=== PATIENT | male | born 1950 | race Caucasian/White ===

== ENCOUNTER 2019-02-17 18:26 | Observation (INO) | payer OTHER ==
--- OUTSIDE RECORDS SUMMARY | 2019-02-17 18:29 | XMS REPORT | Clinical Summary ---
:1950 Author Organization [facility] Address [address] [place] [address] Care Team Providers Name Role Phone Asked, No Pcp Primary Care Provider Unavailable Allergies No Known Allergies Medications Medication Sig Dispensed Refills Start Date End Date Status doxazosin TAKE 1 TABLET 1 11/04/2018 Active (CARDURA) 2 MG BY MOUTH tablet EVERYDAY AT BEDTIME candesartan-hydroc TAKE 1 TABLET 1 11/12/2018 Active hlorothiazid 32-25 BY MOUTH EVERY mg tablet DAY IN THE MORNING LIVALO 2 mg tablet Take 2 mg by 1 09/11/2018 Active mouth nightly. potassium chloride Take 10 mEq by 0 10/21/2018 Active (K-DUR,KLOR-CON) mouth 2 (two) 10 MEQ CR tablet times a day. carvedilol (COREG) Take 25 mg by 1 10/01/2018 Active 25 MG tablet mouth 2 (two) times a day. omeprazole TAKE 1 CAPSULE 0 12/15/2018 Active (PriLOSEC) 20 MG BY MOUTH EVERY capsule DAY IN THE MORNING psyllium seed, Take by mouth 0 Active with dextrose, every morning. (FIBER ORAL) azithromycin 0 01/31/2019 Active (ZITHROMAX) 250 MG tablet lansoprazole TAKE 1 CAPSULE 1 08/31/2018 01/18/2019 Discontinued (PREVACID) 30 MG BY MOUTH EVERY capsule DAY IN THE MORNING traMADol (ULTRAM) Take 1 tablet 30 tablet 0 02/04/2019 02/14/2019 50 mg tablet (50 mg total) by mouth every 6 (six) hours as needed for moderate pain for up to 10 days. docusate sodium Take 1 capsule 20 capsule 0 02/04/2019 02/14/2019 (COLACE) 100 MG (100 mg total) capsule by mouth 2 (two) times a day for 10 days. Active Problems Problem Noted Date Right kidney mass 02/03/2019 Right renal mass 02/02/2019 Gross hematuria 11/28/2018 Overview: Cx and cytology CT w/ w/o - hematuria protocol Cysto to be scheduled. BPH with obstruction/lower urinary tract symptoms 11/28/2018 Overview: PSA and OK today Annual f/u Encounters Date Type Specialty Care Team Description 02/10/2019 Office Visit Urology Ryan, Renal mass (Primary Dx); MD Papito Gross hematuria; BPH with obstruction/lower urinary tract symptoms 02/08/2019 Telephone Urology Papito Davis MD 02/02/2019 Anesthesia Event Urology Esperanza Mayer, RIVAS 02/02/2019 Surgery Urology Ryan, RIGHT ROBOTIC MD Papito ASSISTED RADICAL NEPHRECTOMY, LYSIS OF ADHESIONS AND PARACAVAL LYMPH NODE DISSECTION 02/02/2019 - Hospital Encounter General Internal Ryan, Right renal mass 02/06/2019 Medicine MD Papito 02/01/2019 Telephone Urology Shante Perez MA 01/24/2019 Hospital Encounter Radiology Ryan, Renal cell MD Papito carcinoma of right kidney (HCC) 01/23/2019 Hospital Encounter Radiology Papito Davis MD 01/20/2019 Pre-Admit Testing Pre-Admission Ryan, Preop testing Appointment Testing MD Papito (Primary Dx) 01/18/2019 Telephone Urology Papito Davis MD 01/16/2019 Telephone Urology Papito Davis MD 01/16/2019 Telephone Urology Papito Davis MD 01/13/2019 Lab Lab Ryan, Ureteral fistula MD Papito (Primary Dx) 01/13/2019 Office Visit Urology Ryan, Renal mass (Primary MD Papito Dx) 01/12/2019 Telephone Papito Hinson MD 01/10/2019 Telephone Urology Shante Perez MA 01/05/2019 Orders Only Urology Ryan, Renal cell adenoma, left ( Primary Dx); MD Papito Renal cell carcinoma of right kidney (HCC) 01/05/2019 Orders Only Urology Austin Lee MD 01/04/2019 Telephone Urology Poonam Mcwilliams PA 12/30/2018 Orders Only Urology Poonam Mcwilliams PA 12/20/2018 Lab Lab Anthony, Gross hematuria Chetan Jay MD (Primary Dx) 12/20/2018 Procedure visit Urology Antohny Gross hematuria Chetan Jay MD (Primary Dx) 12/07/2018 Telephone Urology Anthony Gross hematuria Chetan Jay MD (Primary Dx) 12/01/2018 Telephone Urology Chetan Cruz MD 11/29/2018 Telephone Urology Poonam Mcwilliams PA 11/28/2018 Lab Lab System, Provider Gross hematuria Not In, Chetan Copeland MD 11/28/2018 Office Visit Urology Poonam Mcwilliams Gross hematuria (Primary Dx); CHRISTIANNE Mulligan BPH with obstruction/lower urinary tract symptoms after 02/16/2018 Family History Medical History Relation Name Comments No Known Problems Brother Cancer Father Skin cancer Father Alzheimer's disease Mother No Known Problems Sister Relation Name Status Comments Brother Alive Father Mother Sister Alive Social History Tobacco Use Types Packs/Day Years Used Date Never Smoker Smokeless Tobacco: Never Used Alcohol Use Drinks/Week oz/Week Comments No Alcohol Habits Answer Date Recorded How often do you have a drink containing alcohol? Never 11/28/2018 How many drinks containing alcohol do you have on a typical Not asked day when you are drinking? How often do you have six or more drinks on one occasion? Not asked Sex Assigned at Date Recorded Not on file Job Start Date Occupation Industry Not on file Not on file Not on file Travel History Travel Start Travel End No recent travel history available. Last Filed Vital Signs Vital Sign Reading Time Taken Blood Pressure 148/77 02/06/2019 7:49 AM CDT Pulse 68 02/06/2019 7:49 AM CDT Temperature 35.1 C (95.2 F) 02/06/2019 7:49 AM CDT Respiratory Rate 18 02/06/2019 7:49 AM CDT Oxygen Saturation 96% 02/06/2019 7:49 AM CDT Inhaled Oxygen Concentration - - Weight 112 kg (248 lb) 02/02/2019 11:13 AM CDT Height 185.4 cm (6' 1") 02/02/2019 11:13 AM CDT Body Mass Index 32.72 02/02/2019 11:13 AM CDT Plan of Treatment Date Type Specialty Care Team Description 02/20/2019 Office Visit General Surgery Francine Hamida Joe [address] [facility] [address] [facility], [address] [place], [place] [id number] Health Maintenance Due Date Last Done Comments COLONOSCOPY SCREENING 09/30/1999 SHINGLES VACCINES (#1) 09/30/1999 65+ PNEUMOCOCCAL VACCINE (1 of 2 - PCV13) 2014 INFLUENZA VACCINE 02/16/2019 Implants Implanted Type Area Roving Marker Device Shelf Model / Identifier Expiration Serial / Date Lot Clip [employer] Hem-[employer]-Radha Endoscpc Aplr Xl Ply - [id number] Medical N/A: N /A WECK CLOSURE [id number] / Implanted: 02/02/2019 (Quantity not on file) Clips for SYSTEMS / Internal Use Clip [employer]igt[employer] Hem-[employer]-Radha Endoscpc Aplr Plymr - [id number] Medical N/A: N/A WECK CLOSURE [id number] / Implanted: 02/02/2019 (Quantity not on file) Clips for SYSTEMS / Internal Use Procedures Procedure Name Priority Date/Time Associated Comments Diagnosis POC GLUCOSE Routine 02/06/2019 7:55 Results for this AM CDT procedure are in the results section. HC COMPLETE BLD COUNT Routine 02/06/2019 5:30 Results for this W/AUTO DIFF AM CDT procedure are in the results section. ESTIMATED GFR Routine 02/06/2019 4:00 Results for this AM CDT procedure are in the results section. BASIC METABOLIC PANEL Routine 02/06/2019 4:00 Results for this AM CDT procedure are in the results section. POC GLUCOSE Routine 02/05/2019 9:24 Results for this PM CDT procedure are in the results section. POC GLUCOSE Routine 02/05/2019 4:46 Results for this PM CDT procedure are in the results section. POC GLUCOSE Routine 02/05/2019 11:24 Results for this AM CDT procedure are in the results section. POC GLUCOSE Routine 02/05/2019 7:54 Results for this AM CDT procedure are in the results section. HC COMPLETE BLD COUNT Routine 02/05/2019 6:00 Results for this W/AUTO DIFF AM CDT procedure are in the results section. ESTIMATED GFR Routine 02/05/2019 4:00 Results for this AM CDT procedure are in the results section. BASIC METABOLIC PANEL Routine 02/05/2019 4:00 Results for this AM CDT procedure are in the results section. POC GLUCOSE Routine 02/04/2019 8:59 Results for this PM CDT procedure are in the results section. HC COMPLETE BLD COUNT Routine 02/04/2019 6:40 Results for this W/AUTO DIFF AM CDT procedure are in the results section. ESTIMATED GFR Routine 02/04/2019 4:00 Results for this AM CDT procedure are in the results section. BASIC METABOLIC PANEL Routine 02/04/2019 4:00 Results for this AM CDT procedure are in the results section. ESTIMATED GFR Routine 02/03/2019 4:50 Results for this AM CDT procedure are in the results section. BASIC METABOLIC PANEL Routine 02/03/2019 4:50 Results for this AM CDT procedure are in the results section. HEMOGLOBIN & Routine 02/03/2019 4:50 Results for this HEMATOCRIT AM CDT procedure are in the results section. ESTIMATED GFR STAT 02/02/2019 5:15 Results for this PM CDT procedure are in the results section. BASIC METABOLIC PANEL STAT 02/02/2019 5:15 Results for this PM CDT procedure are in the results section. HEMOGLOBIN & STAT 02/02/2019 5:15 Results for this HEMATOCRIT PM CDT procedure are in the results section. MN AN ELECTIVE Routine 02/02/2019 1:08 ENDOTRACHEAL AIRWAY PM CDT Procedure Note - Lisbet Palacios CRNA - 02/02/2019 1:08 PM CDT Airway Date/Time: 02/02/2019 1:04 PM Performed by: Lisbet Palacios CRNA Authorized by: Ciara Chappell MD Location: OR Urgency: Elective Difficult Airway: No Anesthesiologist: Ciara Chappell MD Resident/OILING MACHINE OPERATOR/AA: Lisbet Palacios CRNA Performed by: resident/OILING MACHINE OPERATOR/AA Preoxygenated with 100% O2: Yes C-spine Precautions Maintained Throughout: Yes Mask Ventilation: Not attempted Final Airway Type: Endotracheal airway Final Endotracheal Airway: ETT Cuffed: Yes Technique Used: Direct laryngoscopy Devices/Methods Used in Placement: Intubating stylet and cricoid pressure Insertion Site: Oral Blade Type: Lawson Laryngoscope Blade/Videolaryngoscope Blade Size: 2 ETT Size (mm): 8.0 Cuff at minimum occlusion pressure: Yes Measured from: Lips ETT to Lips (cm): 23 Placement Verified by: CO2 detection, direct visualization and equal breath sounds Laryngoscopic view: Grade IIa - partial view of glottis Rapid Sequence Induction (RSI): Yes Modified RSI: No Number of Attempts at Approach: 1 Preo2> 3min, SIVI with RSI and cricoid pressure, mask ventilation not attempted. DL x 1 with Mil 2, Oett 8.0 placed with ease, no trauma. Dentition and oral mucosa intact as per preop. NEPHRECTOMY, PARTIAL, LAPAROSCOPIC, 02/02/2019 12:30 PM CDT Right renal mass ROBOT-ASSISTED Case Notes XI Special Needs XI SURGICAL PATHOLOGY Routine 02/02/2019 9:11 AM Results for this REQUEST CDT procedure are in the results section. CT CHEST W CONTRAST Routine 01/24/2019 4:11 PM Renal cell Results for this ABDOMEN W WO CONTRAST CDT carcinoma of right procedure are in PELVIS W CONTRAST kidney (HCC) the results section. URINE CULTURE Routine 01/20/2019 12:07 PM Results for this CDT procedure are in the results section. ECG 12-LEAD Routine 01/20/2019 11:52 AM Preop testing Results for this CDT procedure are in the results section. ESTIMATED GFR Routine 01/20/2019 11:30 AM Results for this CDT procedure are in the results section. TYPE AND SCREEN Routine 01/20/2019 11:30 AM Preop testing Results for this CDT procedure are in the results section. URINALYSIS SCREEN AND Routine 01/20/2019 11:30 AM Preop testing Results for this MICROSCOPY, WITH REFLEX CDT procedure are in TO CULTURE the results section. COMPREHENSIVE METABOLIC Routine 01/20/2019 11:30 AM Preop testing Results for this PANEL CDT procedure are in the results section. CYTOLOGY Routine 01/13/2019 11:00 PM Results for this (NON-GYNECOLOGICAL) CDT procedure are in REQUEST the results section. BASIC METABOLIC PANEL Routine 01/13/2019 2:34 PM Results for this CDT procedure are in the results section. CBC WITH PLATELET AND Routine 01/13/2019 2:34 PM Results for this DIFFERENTIAL CDT procedure are in the results section. PARTIAL THROMBOPLASTIN Routine 01/13/2019 2:34 PM Renal mass Results for this TIME (PTT) CDT procedure are in the results section. PROTHROMBIN TIME WITH Routine 01/13/2019 2:34 PM Renal mass Results for this INR CDT procedure are in the results section. CT ABDOMEN PELVIS WO Routine 12/30/2018 Results for this CONTRAST procedure are in the results section. SURGICAL PATHOLOGY Routine 12/20/2018 4:45 PM Results for this REQUEST CDT procedure are in the results section. POC URINALYSIS DIPSTICK Routine 12/20/2018 9:58 AM Gross hematuria Results for this CDT procedure are in the results section. CT ABD/PELVIC EXTERNAL Routine 12/09/2018 10:01 AM Results for this STUDY CDT procedure are in the results section. URINE CULTURE Routine 11/28/2018 11:17 AM Gross hematuria Results for this CDT procedure are in the results section. CYTOLOGY Routine 11/28/2018 11:14 AM Results for this (NON-GYNECOLOGICAL) CDT procedure are in REQUEST the results section. PSA, TOTAL AND FREE Routine 11/28/2018 10:45 AM Gross hematuria Results for this CDT procedure are in the results section. POC URINALYSIS DIPSTICK Routine 11/28/2018 10:18 AM Gross hematuria Results for this CDT procedure are in the results section. after 02/16/2018 Results POC glucose (02/06/2019 7:55 AM CDT)Only the most recent of6 resultswithin the time period is included. POC glucose 131 (H) 65 - 99 mg/dL [facility] Comment: [facility] Notified RN Meter ID: [id number] Fuse Spooler: Alex Steele Specimen Performing Organization Address City/State/Zipcode Phone Number [facility] DEPARTMENT OF PATHOLOGY AND [address] [place] [phone] GENOMIC MEDICINE [address] [address] CBC with platelet and differential (02/06/2019 5:30 AM CDT)Only the most recent of4 resultswithin the time period is included. WBC 10.50 4.50 - 11.00 [facility] RBC 4.27 (L) 4.40 - 6.00 [facility] m/[facility] HGB 11.4 (L) 14.0 - 18.0 [facility] g/dL HOSPITAL HCT 34.6 (L) 41.0 - 51.0 % [facility] MCV 81.0 (L) 82.0 - 100.0 [facility] MCH 26.7 (L) 27.0 - 34.0 pg [facility] MCHC 32.9 31.0 - 37.0 [facility] g/dL [facility] RDW - SD 39.8 37.0 - 55.0 fL [facility] MPV 10.5 8.8 - 13.2 fL [facility] Platelet count 208 150 - 400 k/uL [facility] Nucleated RBC 0.00 /100 WBC [facility] Neutrophils 81.6 (H) 39.0 - 69.0 % [facility] Lymphocytes 6.7 (L) 25.0 - 45.0 % [facility] Monocytes 9.1 0.0 - 10.0 % [facility] Eosinophils 1.8 0.0 - 5.0 % [facility] Basophils 0.2 0.0 - 1.0 % [facility] Immature granulocytes 0.6Comment: 0.0 - 1.0 % [facility] "[facility] granulocytes" (promyelocytes , myelocytes, metamyelocytes ) Specimen Blood Performing Organization Address City/[facility] Phone Number [facility] DEPARTMENT OF PATHOLOGY AND [address] [place] [address] GENOMIC MEDICINE [address] [address] Estimated GFR (02/06/2019 4:00 AM CDT)Only the most recent of6 resultswithin the time period is included. Estimated GFR 49 (A) mL/min/1.73 [facility] Comment: m2 HOSPITAL CatergoryUnitsInterpretation G1 >=90 Normal or high G2 60-89Mildly decreased [id number] to moderately decreased [id number] to severely decreased G4 15-29Severely decreased G5 <15Kidney failure The eGFR was calculated using the Chronic Kidney Disease Epidemiology Collaboration (CKD-EPI) equation. Interpretation is based on recommendations of the National Kidney Foundation-Kidney Disease Outcomes Quality Initiative (NKF-KDOQI) published in 2014. Specimen Plasma specimen Performing Organization Address City/State/Zipcode Phone Number [facility] DEPARTMENT OF PATHOLOGY AND [address] [place] [address] Basic metabolic panel (02/06/2019 4:00 AM CDT)Only the most recent of6 resultswithin the time period is included. Sodium 143 135 - 148 mEq/L [facility] Potassium 3.0 (LL) 3.5 - 5.0 mEq/L [facility] Chloride 105 98 - 112 mEq/L [facility] CO2 27 24 - 31 mEq/L [facility] Anion gap 11@ANIO 7 - 15 mEq/L [facility] BUN 18 8 - 23 mg/dL [facility] Creatinine 1.43 (H) 0.70 - 1.20 mg/dL [facility] Glucose 119 (H) 65 - 99 mg/dL [facility] Calcium 8.6 (L) 8.8 - 10.2 mg/dL [facility] Specimen Plasma specimen Performing Organization Address City/[facility] Phone Number [facility] DEPARTMENT OF PATHOLOGY AND [address] [place] [address] Hemoglobin & hematocrit (02/03/2019 4:50 AM CDT)Only the most recent of2 resultswithin the time period is included. Pathologist [facility] HGB 12.2 (L) 14.0 - 18.0 g/dL [facility] HCT 36.4 (L) 41.0 - 51.0 % [facility] Specimen Blood Performing Organization Address City/[facility] Phone Number [facility] DEPARTMENT OF PATHOLOGY AND [address] [place] [address] Surgical pathology request (02/02/2019 9:11 AM CDT)Only the most recent of2 resultswithin the time period is included. [facility] DEPARTMENT OF PATHOLOGY AND GENOMIC MEDICINE Surgical pathology See link below [facility] DEPARTMENT OF report for PDF Lab PATHOLOGY AND Report GENOMIC MEDICINE Result status This is Final [facility] DEPARTMENT OF Report for PATHOLOGY AND [id number] GENOMIC MEDICINE Specimen Performing Organization Address City/State/Zipcode Phone Number [facility] DEPARTMENT OF PATHOLOGY AND [address] [place] [address] [facility] MEDICINE CT Chest W Contrast Abdomen W Wo Contrast Pelvis W Contrast (01/24/2019 4:11 PM CDT) Specimen Narrative Performed At [facility] ABDOMEN W WO CONTRAST PELVIS W CONTRAST CLINICAL HISTORY: C64.1 Malignant neoplasm of right kidneyexcept renal pelvis, staging for surgery TECHNIQUE: All CT images were acquired using low-dose technique with iterative reconstructions and/or automated exposure control to reduce radiation dose. Axial images of the abdomen were obtained prior to intravenous contrast administration. Multiple axial images of the chest, abdomen, and pelvis were obtained following intravenous administration of iodinated contrast. Delayed images of the abdomen and pelvis were obtained, using renal focus protocol. Oral contrast was not given. Sagittal, axial and coronal computerized reformatted images were obtained. COMPARISON: CT scan of the abdomen and pelvis, obtained on 12/09/2018 from [facility] in [place], [place]. CHEST: Mineralization is within normal limits. A destructive process is not appreciated. There are no infiltrates, pleural fluid or parenchymal masses. The heart is normal in size. The aorta and great vessels are normal. Coronary artery calcification is not seen.Pulmonary arteries and veins are normal in caliber. Superior vena cava is normal. The mediastinum is free of masses and adenopathy. ABDOMEN: A vacuum disc with disc space narrowing, endplate sclerosis and osteophytosis is at L5-S1. Hip joint spaces are mildly narrowed. The liver, spleen, pancreas, gallbladder and biliary ducts are normal. The adrenal glands and left kidney are normal. Again seen is a central mass, 6.2 x 8.0 x 8.0 cm in the right kidney, previously, 6.4 x 7.7 x 7.2 cm. Minimal calcification is associated with this mass. Mass effect on the renal pelvis is noted. Vascular invasion is not seen. Minimal atherosclerotic calcification is in the aorta and its branches. Inferior vena cava is normal. There are small nonspecific retroperitoneal lymph nodes Gastric contours are normal. Small bowel is not dilated. The appendix and colon are normal. PELVIS: The bladder and ureters are normal. Prostate is mildly enlarged, 4-5 cm. There are no masses or fluid collections. IMPRESSION: Right renal mass, increasing since the previous study, worrisome for primary renal carcinoma. No vascular invasion or evidence of metastatic disease. [facility]-[id number] Procedure Note Interface, Radiology Results Incoming - 01/24/2019 5:50 PM CDT EXAMINATION: CT CHEST W CONTRAST ABDOMEN W WO CONTRAST PELVIS W CONTRAST CLINICAL HISTORY: C64.1 Malignant neoplasm of right kidney except renal pelvis, staging for surgery TECHNIQUE: All CT images were acquired using low-dose technique with iterative reconstructions and/or automated exposure control to reduce radiation dose. Axial images of the abdomen were obtained prior to intravenous contrast administration. Multiple axial images of the chest, abdomen, and pelvis were obtained following intravenous administration of iodinated contrast. Delayed images of the abdomen and pelvis were obtained, using renal focus protocol. Oral contrast was not given. Sagittal , axial and coronal computerized reformatted images were obtained. COMPARISON: CT scan of the abdomen and pelvis, obtained on 12/09/2018 from [facility] in [place], [place]. CHEST: Mineralization is within normal limits. A destructive process is not appreciated. There are no infiltrates, pleural fluid or parenchymal masses. The heart is normal in size. The aorta and great vessels are normal. Coronary artery calcification is not seen. Pulmonary arteries and veins are normal in caliber. Superior vena cava is normal. The mediastinum is free of masses and adenopathy. ABDOMEN: A vacuum disc with disc space narrowing, endplate sclerosis and osteophytosis is at L5-S1. Hip joint spaces are mildly narrowed. The liver, spleen, pancreas, gallbladder and biliary ducts are normal. The adrenal glands and left kidney are normal. Again seen is a central mass, 6.2 x 8.0 x 8.0 cm in the right kidney, previously, 6.4 x 7.7 x 7.2 cm. Minimal calcification is associated with this mass. Mass effect on the renal pelvis is noted. Vascular invasion is not seen. Minimal atherosclerotic calcification is in the aorta and its branches. Inferior vena cava is normal. There are small nonspecific retroperitoneal lymph nodes Gastric contours are normal. Small bowel is not dilated. The appendix and colon are normal. PELVIS: The bladder and ureters are normal. Prostate is mildly enlarged, 4-5 cm. There are no masses or fluid collections. IMPRESSION: Right renal mass, increasing since the previous study, worrisome for primary renal carcinoma. No vascular invasion or evidence of metastatic disease. [facility]-[id number] Performing Organization Address City/State/Zipcode Phone Number [facility] [address] [place] [address] Urine culture (01/20/2019 12:07 PM CDT)Only the most recent of2 resultswithin the time period is included. Urine culture SEE COMMENTComment: [facility] Bacteriuria screen HOSPITAL negative. Specimen Performing Organization Address [facility] Phone Number [facility] DEPARTMENT OF PATHOLOGY AND [address] [place] [address] GENOMIC MEDICINE [facility] [address] [place] [address] ECG 12 lead (01/20/2019 11:52 AM CDT) Ventricular rate 57 [facility]USE Atrial rate 57 [facility] MN interval 204 [facility] QRSD interval 104 [facility] QT interval 474 [facility] QTC interval 461 [facility] MUSE P axis 1 38 [facility] MUSE QRS axis 1 -66 [facility] MUSE T wave axis 3 [facility] MUSE EKG impression Sinus bradycardia-abnormal r wave progression-Left anterior fascicular block-Cannot rule out Inferior infarct (cited on or before 2018)-Abnormal ECG-In automated comparison with ECG of 20-JAN-2019 11:52,- fusion complexes are no longer [facility] MUSE present- 10 :14:06 PM Specimen Narrative Performed At Performing Organization Address [facility] Phone Number [facility] MUSE [address] [place] [address] Urinalysis screen and microscopy, with reflex to culture (01/20/2019 11:30 AM CDT) Specimen site Clean catch [facility] Color, UA Colorless [facility] Appearance, UA Clear [facility] Specific gravity, 1.005 1.001 - 1.035 [facility] pH, UA 7.0 5.0 - 8.5 [facility] Protein, UA Negative Negative [facility] Glucose, UA Negative Negative [facility] Ketones, UA Negative Negative [facility] Bilirubin, UA Negative Negative [facility] Blood, UA Negative Negative [facility] Nitrite, UA Negative Negative [facility] Urobilinogen, UA <2.0 <2.0 [facility] Leukocyte esterase, Negative Negative [facility] WBC, UA 1 0 - 1 /HPF [facility] RBC, UA 2 0 - 5 /HPF [facility] Bacteria, UA None seen None seen [facility] Yeast, UA None seen [facility] Yeast with None seen [facility] pseudohyphae, UA HOSPITAL Specimen Urine Performing Organization Address City/[facility] Phone Number [facility] DEPARTMENT OF PATHOLOGY AND [address] [place] [address] Type and screen (01/20/2019 11:30 AM CDT) ABO grouping O [facility] Rh type POS [facility] Antibody screen (gel) NEG [facility] Specimen Blood Performing Organization Address [facility] Phone Number [facility] DEPARTMENT OF PATHOLOGY AND [address] [place] [address] Comprehensive metabolic panel (01/20/2019 11:30 AM CDT) Sodium 142 135 - 148 [facility] mEq/L [facility] Potassium 3.7 3.5 - 5.0 [facility] mEq/L [facility] Chloride 100 98 - 112 mEq/L [facility] CO2 31 24 - 31 mEq/L [facility] Anion gap 11@ANIO 7 - 15 mEq/L [facility] BUN 17 8 - 23 mg/dL [facility] Creatinine 0.98 0.70 - 1.20 [facility] mg/dL HOSPITAL Glucose 113 (H) 65 - 99 mg/dL [facility] Calcium 9.4 8.8 - 10.2 [facility] mg/dL HOSPITAL Protein 7.8 6.3 - 8.3 g/dL [facility] Comment: HOSPITAL [place] 4.6-7.0 g/dL 1 week 4.4-7.6 g/dL 7 months-1year5.1-7.3 g/dL 1-2 years5.6-7.5 g/dL >3 years6.0-8.0 g/dL 18-150 6.3-8.3 g/dL Albumin 3.7 3.5 - 5.0 g/dL [facility] A/G ratio 0.9 0.7 - 3.8 [facility] Alkaline phosphatase 54 40 - 129 U/L [facility] AST 22 10 - 50 U/L [facility] ALT 22 5 - 50 U/L [facility] Total bilirubin 0.4 0.0 - 1.2 [facility] mg/dL HOSPITAL Specimen Plasma specimen Performing Organization Address City/[facility]/Zipcode Phone Number [facility] DEPARTMENT OF PATHOLOGY AND [address] [place] [phone] GENOMIC MEDICINE [address] [address] Cytology (non-gynecological) request (01/13/2019 11:00 PM CDT)Only the most recent of2 resultswithin the time period is included. [facility] DEPARTMENT OF PATHOLOGY AND GENOMIC MEDICINE Cytology See link below [facility] DEPARTMENT OF (non-gynecological) for PDF Lab PATHOLOGY AND report Report GENOMIC MEDICINE Result status This is Final [facility] DEPARTMENT OF Report for PATHOLOGY AND [id number] GENOMIC MEDICINE Specimen Performing Organization Address City/[facility] Phone Number [facility] DEPARTMENT OF PATHOLOGY AND [address] [place] [id number] [facility] MEDICINE Partial thromboplastin time, activated (01/13/2019 2:34 PM CDT) aPTT 31 24 - 33 sec [facility] Comment: This test has not been validated for monitoring unfractionated heparin therapy. aPTT-based therapeutic ranges for unfractionated heparin therapy have not been established. For general guidelines on Heparin monitoring, refer to the [facility] Directory of Services. Specimen Blood Narrative Performed At Performed at: [facility] [address] [place], [place] [id number] Chief Nurse Executive: Donald Houston MD, Phone:[phone] Performing Organization Address City/State/Zipcode Phone Number [facility] Prothrombin time with INR (01/13/2019 2:34 PM CDT) INR 1.0 0.8 - 1.2 [facility] Comment: Reference interval is for non-anticoagulated patients. Suggested INR therapeutic range for Vitamin K antagonist therapy: Standard Dose (moderate intensity therapeutic range): 2.0 - 3.0 Higher intensity therapeutic range 2.5 - 3.5 Prothrombin time 10.7 9.1 - 12.0 sec [facility] Specimen Blood Narrative Performed At Performed at:01 - [facility] [address] [place], [id number] Chief Nurse Executive: Donald Houston MD, Phone:[phone] Performing Organization Address City/State/Zipcode Phone Number [facility] CT Abdomen Pelvis Wo Contrast (12/30/2018) Narrative Performed At POC urinalysis dipstick (12/20/2018 9:58 AM CDT)Only the most recent of2 resultswithin the time period is included. Color urine, POC Yellow Clarity urine, POC Clear Glucose urine, POC Negative Negative Bilirubin urine, POC Negative Negative Ketones urine, POC Negative Negative Specific gravity urine, 1.015 1.005 - 1.030 P[facility] Blood urine, POC Trace (A) Negative pH urine, POC 6.0 5.0, 5.5, 6.0, 6.5, 7.0, 7.5, 8.0, 8.5 Protein urine, POC Negative Negative Urobilinogen urine, POC <2.0 <2.0 Nitrite urine, POC Negative Negative Leukocyte esterase Negative Negative urine, POC Specimen Urine CT Abd/Pelvic External Study (12/09/2018 10:01 AM CDT) Specimen Narrative Performed At This exam was not acquired at a [facility] facility and has not been [facility] interpreted by a [facility] Provider.The exam was imported into our imaging system for comparisons purposes. Performing Organization Address City/[facility] Phone Number [facility] [address] [place] [address] PSA, total and free (11/28/2018 10:45 AM CDT) PSA 0.7 0.0 - 4.0 [facility] Comment: ng/mL Stephanie ECLIA methodology. According to the [employer], Serum PSA should decrease and remain at undetectable levels after radical prostatectomy. The AUA defines biochemical recurrence as an initial PSA value 0.2 ng/mL or greater followed by a subsequent confirmatory PSA value 0.2 ng/mL or greater. Values obtained with different assay methods or kits cannot be used interchangeably. Results cannot be interpreted as absolute evidence of the presence or absence of malignant disease. PSA, free 0.26Comment: Stephanie N/A ng/mL [facility] ECLIA methodology. PSA, free percent 37.1 % [facility] Comment: The table below lists the probability of prostate cancer for men with non-suspicious [place] results and total PSA between 4 and 10 ng/mL, by patient age (Lyubov et al, DORIAN 1998, 279:1542). % Free PSA 50-64 yr 65-75 yr 0.00-10.00%56% 55% 10.01-15.00%24% 35% 15.01-20.00%17% 23% 20.01-25.00%10% 20% >25.00% 5% 9% Please note:Lyubov et al did not make specific recommendations regarding the use of percent free PSA for any other population of men. Specimen Blood Narrative Performed At Performed at: - [facility] [address] [place], [id number] Chief Nurse Executive: Donald Houston MD, Phone:[phone] Performing Organization Address City/State/Zipcode Phone Number [facility] after 02/16/2018 Advance Directives Patient has advance care planning documents on file. For more information, please contact:Beltran Lin[address] [place] [address]
[2019-02-17] MEDS ORDERED: NA CHLORIDE 0.9% 1,000 ML ONE (20:22)
[2019-02-17 20:43] LABS: Protime INR 1.04
[2019-02-17 20:52] LABS: Urine Blood NEGATIVE (NEG); Urine Glucose NEGATIVE (NEG); Urine Protein NEGATIVE (NEG); Urine Specific Gravity 1.025 (1.005-1.030)
[2019-02-17 20:54] LABS: Basophils % 0.8 % (0-1.3); Hematocrit 38.9 % (39.6-49.0); Lymphocytes % 22.5 % (15.3-44.8); RBC Red Blood Cell Count 4.84 M/uL (4.33-5.43)
[2019-02-17 21:03] LABS: ALT/SGPT 25 U/L (12-78); AST/SGOT 12 U/L (15-37); Albumin 3.4 g/dL (3.4-5.0); Alkaline Phosphatase 79 U/L (45-117); BUN Blood Urea Nitrogen 24 mg/dL (7-18); Bicarbonate 30 mmol/L (21-32); Bilirubin Direct 0.1 mg/dL (0-0.2); Bilirubin Total 0.3 mg/dL (0.2-1.0); Glucose Level 118 mg/dL (74-106); Lipase 245 U/L (73-393); Magnesium 2.2 mg/dL (1.8-2.4); NT PRO-BNP 26 pg/mL (<125); Potassium 4.4 mmol/L (3.5-5.1); Protein, Total 7.9 g/dL (6.4-8.2); Sodium Level 139 mmol/L (136-145); Troponin (Emerg Dept Use Only) < 0.02 ng/mL (0.0-0.045)
--- NOTE | 2019-02-17 21:27 | RAD REPORT ---
EXAM DESCRIPTION: RAD - Chest Single View - 02/17/2019 8:19 pm CLINICAL HISTORY: Cough COMPARISON: None. TECHNIQUE: AP portable chest image was obtained 2014 hours . FINDINGS: Lungs are clear. Heart and vasculature are normal. No measurable pleural effusion and no p neumothorax. No acute bony abnormality seen. No acute aortic findings suspected. IMPRESSION: No acute cardiopulmonary process.
--- NOTE | 2019-02-17 21:55 | ER ---
Nurse's Notes [facility] Name: Robles Sam Age: 68 yrs Sex: Male : 1950 Arrival Date: 02/17/2019 Time: 18:27 Bed 8 Private MD: Esteban Ji T Diagnosis: Weakness;Hypotension;Unspecified kidney failure-sp nephrectomy Presentation: 02/17 18:37 Presenting complaint: Patient states: "I had my right kidney removed 2 weeks ago at [facility] and my doctor said I was anemic so I've been taking Iron but my blood pressure has been trending low for the last few days and today was 102/68". Pt states "my doctor also doubled up my blood pressure medicine (Doxazosin Mesylate) last ". Pt c/o abdominal "soreness". 18:37 Transition of care: patient was not received from another setting of care. Onset of aa5 symptoms was 2018. Risk Assessment: Do you want to hurt yourself or someone else? Patient reports no desire to harm self or others. Initial Sepsis Screen: Does the patient meet any 2 criteria? No. Patient's initial sepsis screen is negative. Does the patient have a suspected source of infection? No. Patient's initial sepsis screen is negative. Care prior to arrival: None. 18:37 Acuity: NANETTE 3 aa5 18:37 Method Of Arrival: Ambulatory aa5 Historical: - Allergies: 18:37 No Known Allergies; aa5 - Home Meds: 18:59 doxazos mesylate 2mg nightly [Active]; candesartan-hydrochlorothiazid 32-25 mg oral tab aa5 once daily [Active]; potassium chloride 10 mEq oral TbER 2 times per day [Active]; 18:59 omeprazole 20 mg Oral cpDR once daily [Active]; Livalo 2 mg oral tab 1 tab once daily aa5 [Active]; carvedilol 25 mg oral tab 1 tab 2 times per day [Active]; - PMHx: 18:37 Hyperlipidemia; Hypertension; aa5 - PSHx: 18:37 minor finger, leg sx; Right Kidney removed- Tumor; aa5 - Immunization history:: Adult Immunizations up to date. - Ebola Screening: : No symptoms or risks identified at this time. - Family history:: not pertinent. - Social history:: Smoking status: Patient/guardian denies using tobacco. Screenin:10 Abuse screen: Denies threats or abuse. Denies injuries from another. Nutritional lp1 screening: No deficits noted. Tuberculosis screening: No symptoms or risk factors identified. Fall Risk Total [place] Fall Scale indicates High Risk Score (45 or more points). Fall prevention measures have been instituted. Side Rails Up X 2 As available patient and family educated on Fall Prevention Program and Strategies. Assessment: 19:08 General: Appears in no apparent distress. comfortable, Behavior is calm, cooperative, lp1 appropriate for age. Pain: Denies pain. Neuro: Level of Consciousness is awake, alert, obeys commands, Oriented to person, place, time, situation, Reports dizziness, upon standing. Cardiovascular: Patient's skin is warm and dry. Respiratory: Airway is patent Respiratory effort is even, unlabored. GI: Abdomen is non-distended. : No signs and/or symptoms were reported regarding the genitourinary system. EENT: No signs and/or symptoms were reported regarding the EENT system. Derm: Skin is pink, warm \\T\\ dry. Musculoskeletal: No signs and/or symptoms reported regarding the musculoskeletal system. 20:00 Reassessment: Patient appears in no apparent distress at this time. Patient and/or lp1 family updated on plan of care and expected duration. Pain level reassessed. Patient is alert, oriented x 3, equal unlabored respirations, skin warm/dry/pink. Patient states feeling better. 20:49 Reassessment: Patient ambulated to bathroom independently; Denies any dizziness, lp1 lightheartedness. 22:03 Reassessment: Dr. Matthews at bedside to discuss results with patient and . lp1 Vital Signs: 18:38 BP 114 / 67; Pulse 79; Resp 18 S; Temp 98.7(TE); Pulse Ox 97% on R/A; Weight 108.86 kg aa5 (R); Height 6 ft. 1 in. (185.42 cm) (R); 19:11 BP 96 / 68; Pulse 75; Resp 13; Pulse Ox 99% on R/A; Pain 0/10; lp1 19:40 BP 111 / 64; Pulse 72; Resp 20; Pulse Ox 99% on R/A; lp1 20:00 BP 109 / 70; Pulse 74; Resp 18; Pulse Ox 99% on R/A; lp1 20:20 BP 117 / 71; Pulse 70; Resp 15; Pulse Ox 100% on R/A; Pain 0/10; lp1 21:00 BP 106 / 64; Pulse 68; Resp 14; Pulse Ox 100% on R/A; lp1 21:20 BP 120 / 65; Pulse 67; Resp 14; Pulse Ox 100% on R/A; lp1 22:00 BP 121 / 84; Pulse 70; Resp 14; Pulse Ox 100% on R/A; lp1 22:46 BP 136 / 86; Pulse 74; Resp 19; Pulse Ox 99% on R/A; Pain 0/10; lp1 18:38 Body Mass Index 31.66 (108.86 kg, 185.42 cm) aa5 ED Course: 18:27 Patient arrived in ED. as 18:27 Esteban Ji MD is Private Physician. as 18:35 Arm band placed on Patient placed in an exam room, on a stretcher. aa5 18:40 Mustapha Espinosa RN is Primary Nurse. bp 18:54 Triage completed. aa5 19:10 Patient has correct armband on for positive identification. Placed in gown. Bed in low lp1 position. Call light in reach. monitoring manager on. Pulse ox on. NIBP on. 19:29 Sourav Matthews MD is Attending Physician. lucho 20:00 Radiology exam delayed due to lab results not completed at this time. (BUN/Creatinine) vm2 IV insertion attempt and/or patient not having appropriate IV at this time. 20:18 XRAY Chest (1 view) In Process Unspecified. EDMS 20:29 Radiology exam delayed due to lab results not completed at this time. (BUN/Creatinine). nj 20:41 Inserted saline lock: 20 gauge in right antecubital area, using aseptic technique. oe Blood collected. 21:52 Karin Nino MD is Hospitalizing Provider. lucho 22:06 Chest Abd Pelvis Wo Con In Process Unspecified. EDMS 22:06 No provider procedures requiring assistance completed. Patient admitted, IV remains in lp1 place. Administered Medications: 20:35 Drug: NS 0.9% 1000 ml Route: IV; Rate: 1 bolus; Site: right antecubital; lp1 21:45 Follow up: IV Status: Completed infusion; IV Intake: 1000ml lp1 Intake: 21:45 IV: 1000ml; Total: 1000ml. lp1 Outcome: 21:55 Decision to Hospitalize by Provider. lucho 22:06 Condition: stable lp1 22:06 Instructed on the need for admit. 22:46 Admitted to Tele accompanied by tech, room 405, with chart, Report called to amna Lou RN 23:30 Patient left the ED. lp1 Signatures: Dispatcher [employer] EDMS Sourav Matthews MD MD cha Martinez, Amelia as Calderon, Audri, RN RN aa5 Kenisha Fox RN RN lp1 Austin Diana Orlando oe McGuire, Victoria 2 Mustapha Espinosa, RN RN bp Corrections: (The following items were deleted from the chart) 22:04 20:49 Reassessment: Patient ambulated to bathroom independently; Denies any need lp1 lp1 23:57 23:57 Patient left the ED. lp1 lp1
--- NOTE | 2019-02-17 21:55 | EDPHYS ---
Physician Documentation [facility] Name: Robles Sam Age: 68 yrs Sex: Male : 1950 Arrival Date: 02/17/2019 Time: 18:27 Bed 8 Private MD: Esteban Ji T ED Physician Sourav Matthews HPI: 02/17 19:57 This 68 yrs old Male presents to ER via Ambulatory with complaints of Blood lucho Pressure Problem. 19:57 The patient presents with abdominal pain in the upper abdomen, in the lower abdomen, lucho abdominal distention in the upper abdomen, in the lower abdomen. Onset: The symptoms/episode began/occurred 2 day(s) ago. weakness, left nephrectomy 2 weeks ago. Onset: The symptoms/episode began/occurred 2 day(s) ago. Associated signs and symptoms: Pertinent positives:. Modifying factors: The symptoms are alleviated by nothing, the symptoms are aggravated by walking. Severity of pain: At its worst the pain was mild in the emergency department the pain is unchanged. Historical: - Allergies: 18:37 No Known Allergies; aa5 - Home Meds: 18:59 doxazos mesylate 2mg nightly [Active]; candesartan-hydrochlorothiazid 32-25 mg oral tab aa5 once daily [Active]; potassium chloride 10 mEq oral TbER 2 times per day [Active]; 18:59 omeprazole 20 mg Oral cpDR once daily [Active]; Livalo 2 mg oral tab 1 tab once daily aa5 [Active]; carvedilol 25 mg oral tab 1 tab 2 times per day [Active]; - PMHx: 18:37 Hyperlipidemia; Hypertension; aa5 - PSHx: 18:37 minor finger, leg sx; Right Kidney removed- Tumor; aa5 - Immunization history:: Adult Immunizations up to date. - Ebola Screening: : No symptoms or risks identified at this time. - Family history:: not pertinent. - Social history:: Smoking status: Patient/guardian denies using tobacco. ROS: 19:57 Constitutional: Negative for fever, chills, and weight loss, Eyes: Negative for injury, lucho pain, redness, and discharge, ENT: Negative for injury, pain, and discharge, Neck: Negative for injury, pain, and swelling, Cardiovascular: Negative for chest pain, palpitations, and edema, Respiratory: Negative for shortness of breath, cough, wheezing, and pleuritic chest pain, Back: Negative for injury and pain, : Negative for injury, bleeding, discharge, and swelling, MS/Extremity: Negative for injury and deformity, Skin: Negative for injury, rash, and discoloration, Neuro: Negative for headache, weakness, numbness, tingling, and seizure, Psych: Negative for depression, anxiety, suicide ideation, homicidal ideation, and hallucinations, Allergy/Immunology: Negative for hives, rash, and allergies, Endocrine: Negative for neck swelling, polydipsia, polyuria, polyphagia, and marked weight changes, Hematologic/Lymphatic: Negative for swollen nodes, abnormal bleeding, and unusual bruising. 19:57 Abdomen/GI: Positive for abdominal pain, of the right upper quadrant, left upper quadrant, right lower quadrant and left lower quadrant. Exam: 19:57 Constitutional: This is a well developed, well nourished patient who is awake, alert, lucho and in no acute distress. Head/Face: Normocephalic, atraumatic. Eyes: Pupils equal round and reactive to light, extra-ocular motions intact. Lids and lashes normal. Conjunctiva and sclera are non-icteric and not injected. Cornea within normal limits. Periorbital areas with no swelling, redness, or edema. ENT: Nares patent. No nasal discharge, no septal abnormalities noted. Tympanic membranes are normal and external auditory canals are clear. Oropharynx with no redness, swelling, or masses, exudates, or evidence of obstruction, uvula midline. Mucous membranes moist. Neck: Trachea midline, no thyromegaly or masses palpated, and no cervical lymphadenopathy. Supple, full range of motion without nuchal rigidity, or vertebral point tenderness. No Meningismus. Chest/axilla: Normal chest wall appearance and motion. Nontender with no deformity. No lesions are appreciated. Cardiovascular: Regular rate and rhythm with a normal S1 and S2. No gallops, murmurs, or rubs. Normal PMI, no JVD. No pulse deficits. Respiratory: Lungs have equal breath sounds bilaterally, clear to auscultation and percussion. No rales, rhonchi or wheezes noted. No increased work of breathing, no retractions or nasal flaring. Back: No spinal tenderness. No costovertebral tenderness. Full range of motion. Male : Normal genitalia with no discharge or lesions. Skin: Warm, dry with normal turgor. Normal color with no rashes, no lesions, and no evidence of cellulitis. MS/ Extremity: Pulses equal, no cyanosis. Neurovascular intact. Full, normal range of motion. Neuro: Awake and alert, GCS 15, oriented to person, place, time, and situation. Cranial nerves II-XII grossly intact. Motor strength 5/5 in all extremities. Sensory grossly intact. Cerebellar exam normal. Normal gait. Psych: Awake, alert, with orientation to person, place and time. Behavior, mood, and affect are within normal limits. 19:57 Abdomen/GI: Inspection: distension, Bowel sounds: normal, Palpation: mild abdominal tenderness, in all quadrants, postoperative only. Vital Signs: 18:38 BP 114 / 67; Pulse 79; Resp 18 S; Temp 98.7(TE); Pulse Ox 97% on R/A; Weight 108.86 kg aa5 (R); Height 6 ft. 1 in. (185.42 cm) (R); 19:11 BP 96 / 68; Pulse 75; Resp 13; Pulse Ox 99% on R/A; Pain 0/10; lp1 19:40 BP 111 / 64; Pulse 72; Resp 20; Pulse Ox 99% on R/A; lp1 20:00 BP 109 / 70; Pulse 74; Resp 18; Pulse Ox 99% on R/A; lp1 20:20 BP 117 / 71; Pulse 70; Resp 15; Pulse Ox 100% on R/A; Pain 0/10; lp1 21:00 BP 106 / 64; Pulse 68; Resp 14; Pulse Ox 100% on R/A; lp1 21:20 BP 120 / 65; Pulse 67; Resp 14; Pulse Ox 100% on R/A; lp1 22:00 BP 121 / 84; Pulse 70; Resp 14; Pulse Ox 100% on R/A; lp1 22:46 BP 136 / 86; Pulse 74; Resp 19; Pulse Ox 99% on R/A; Pain 0/10; lp1 18:38 Body Mass Index 31.66 (108.86 kg, 185.42 cm) aa5 MDM: 19:29 Patient medically screened. [facility] 19:57 Data reviewed: vital signs, nurses notes, lab test result(s), EKG, radiologic studies, lucho CT scan, plain films. 02/17 19:57 Order name: Basic Metabolic Panel [facility] 02/17 19:57 Order name: CBC with Diff; Complete Time: 21:21 [facility] 02/17 19:57 Order name: LFT's; Complete Time: 21:21 [facility] 02/17 19:57 Order name: Magnesium; Complete Time: 21:21 [facility] 02/17 19:57 Order name: NT PRO-BNP; Complete Time: 21:21 [facility] 02/17 19:57 Order name: PT-INR; Complete Time: 21:21 [facility] 02/17 19:57 Order name: Troponin (emerg Dept Use Only); Complete Time: 21:21 [facility] 02/17 19:57 Order name: Lipase; Complete Time: 21:21 [facility] 02/17 19:57 Order name: Urine Culture [facility] 02/17 19:57 Order name: Type And Screen [facility] 02/17 19:58 Order name: Basic Metabolic Panel; Complete Time: 21:21 [facility] 02/17 20:50 Order name: Urine Dipstick--Ancillary (enter results); Complete Time: 21:21 02/17 21:21 Order name: D-Dimer; Complete Time: 21:47 [facility] 02/17 23:10 Order name: Comprehensive Metabolic Panel [facility] 02/17 19:57 Order name: XRAY Chest (1 view); Complete Time: 21:47 [facility] 02/17 19:57 Order name: EKG; Complete Time: 19:58 [facility] 02/17 19:57 Order name: Cardiac monitoring; Complete Time: 20:20 [facility] 02/17 19:57 Order name: EKG - Nurse/Tech; Complete Time: 20:20 [facility] 02/17 19:57 Order name: IV Saline Lock; Complete Time: 20:49 [facility] 02/17 19:57 Order name: Labs collected and sent; Complete Time: 20:49 [facility] 02/17 21:27 Order name: Chest Abd Pelvis Wo Con [facility] 02/17 21:47 Order name: US Extremity Venous W Compression Esvin [facility] 02/17 21:55 Order name: VQ scan (Nuclear Medicine) [facility] 02/17 23:10 Order name: Comprehensive Metabolic Panel [facility] 02/17 23:11 Order name: CONS Pharmacy Consult [facility] 02/17 23:11 Order name: Regular [facility] 02/17 23:11 Order name: CBC with Automated Diff [facility] 02/17 23:11 Order name: CBC with Automated Diff [facility] 02/17 19:57 Order name: O2 Per Protocol; Complete Time: 20:49 [facility] 02/17 19:57 Order name: O2 Sat Monitoring; Complete Time: 20:49 [facility] 02/17 19:57 Order name: Urine Dipstick-Ancillary (obtain specimen); Complete Time: 20:49 [facility] Administered Medications: 20:35 Drug: NS 0.9% 1000 ml Route: IV; Rate: 1 bolus; Site: right antecubital; lp1 21:45 Follow up: IV Status: Completed infusion; IV Intake: 1000ml lp1 Disposition: 02/17/19 21:55 Hospitalization ordered by Karin Nino for Inpatient Admission. Preliminary diagnosis are Weakness, Hypotension, Unspecified kidney failure - sp nephrectomy. - Bed requested for Telemetry/MedSurg (Inpatient). - Status is Inpatient Admission. lp1 - Condition is Fair. - Problem is new. - Symptoms have improved. UTI on Admission? No Signatures: Dispatcher [employer] [facility] Sourav Matthews MD MD cha Calderon, Audri, RN RN aa5 Kenisha Fox RN RN lp1 Arnaldo Tirado RN RN rr5 Corrections: (The following items were deleted from the chart) 21:27 19:58 Angio Aorta For Dissection+CT.RAD.BRZ ordered. [facility] 22:24 21:55 Hospitalization Ordered by Karin Nino MD for Inpatient Admission. Preliminary rr5 diagnosis is Weakness; Hypotension; Unspecified kidney failure - sp nephrectomy. Bed requested for Telemetry/MedSurg (Inpatient). Status is Inpatient Admission. Condition is Fair. Problem is new. Symptoms have improved. UTI on Admission? No. [facility] 23:57 22:24 02/17/2019 21:55 Hospitalization Ordered by Karin Nino MD for Inpatient lp1 Admission. Preliminary diagnosis is Weakness; Hypotension; Unspecified kidney failure - sp nephrectomy. Bed requested for Telemetry/MedSurg (Inpatient). Status is Inpatient Admission. Condition is Fair. Problem is new. Symptoms have improved. UTI on Admission? No. rr5
[2019-02-17] MEDS ORDERED: ACETAMINOPHEN 500 MG TAB PO PRN (23:07)
[2019-02-17] MEDS ORDERED: MORPHINE 2 MG/ML SYR IV PRN (23:07)
[2019-02-17] MEDS ORDERED: ONDANSETRON 4 MG/2 ML VIAL IV PRN (23:07)
[2019-02-17] MEDS: NA CHLORIDE 0.9% 1,000 ML IV SCH (23:45)
[2019-02-18] MEDS: NA CHLORIDE 0.9% 1,000 ML IV SCH ×2 (00:53→09:52)
[2019-02-18 01:34] VITALS: BMI 31.5
[2019-02-18 05:15] LABS: Basophils % 1.1 % (0-1.3); Hematocrit 35.1 % (39.6-49.0); Lymphocytes % 24.2 % (15.3-44.8); MPV 7.6 fL (7.6-11.3); RBC Red Blood Cell Count 4.42 M/uL (4.33-5.43)
[2019-02-18 05:37] LABS: Albumin 3.2 g/dL (3.4-5.0); Bilirubin Total 0.2 mg/dL (0.2-1.0); Potassium 4.2 mmol/L (3.5-5.1); Protein, Total 7.1 g/dL (6.4-8.2)
--- NOTE | 2019-02-18 06:35 | P.HP ---
Certification for Inpatient Patient admitted to: Observation With expected LOS: <2 Midnights Patient will require the following post-hospital care: None Practitioner: I am a practitioner with admitting privileges, knowledge of patient current condition, hospital course, and medical plan of care. Services: Services provided to patient in accordance with Admission requirements found in Title 42 Section 412.3 of the Code of Federal Regulations Patient History Date of Service: 02/17/19 Reason for admission: Hypotensive/acute kidney injury History of Present Illness: Patient is a 68-year-old gentleman who is on multiple blood pressure medications. Recently his Cardura doses was increased. He has also lost about 20 lb since he had ate now with rash after his nephrectomy. He had a right- sided nephrectomy performed because he had an mass which was found to be benign on the right kidney. It was about 9 cm large. Since that time he has lost 20 lb. His Cardura was recently increased from 2 mg to 4 mg. He has been taking 3 mg of Cardura. However, with his weight loss I believe that his blood pressure has actually improved. We may need to cut out the diuretic as he has also has some renal insufficiency. At this time will hold off on the Cardura and may discontinued the diuretic from his blood pressure medication. His baseline creatinine was less than 1 and currently is elevated at 1.78. Will hydrate him and see if this improves over the next 24 hr. Allergies No Known Allergies Allergy (Verified 02/18/19 01:41) Home Medications: Candesartan/Hydrochlorothiazid [Candesartan-Hctz 32-25 mg Tab] 0.5 tab PO DAILY #30 tablet 02/18/19 Carvedilol 25 mg PO BID 02/18/19 Doxazosin Mesylate [Cardura] 2 mg PO BEDTIME 02/18/19 Omeprazole 20 mg PO 0630 02/18/19 Pitavastatin Calcium [Livalo] 2 mg PO BEDTIME 02/18/19 Potassium Oral Tab [Klor-Con 10 mEq Tab*] 10 meq PO BID 02/18/19 - Past Medical/Surgical History Has patient received pneumonia vaccine in the past: No Diabetic: No -: hyperlipidemia -: HTN -: GERD -: R radical nephrectomy -: nerve repair right pinky finger -: skin "precancer" removal -: skin area removed L lower leg - Family History Father Medical History: Heart disease, Cancer Notes: skin ca Mother Medical History: Other (see notes) Notes: alzheimers Brother Medical History: Heart disease Sister Medical History: Heart disease - Social History Smoking Status: Never smoker Alcohol use: No CD- Drugs: No Caffeine use: No Place of Residence: Home Physical Examination - Vital Signs Temperature: 97.6 F Blood Pressure: 143/71 Pulse: 76 Respirations: 17 Pulse Ox (%): 98 - Studies Laboratory Data (last 24 hrs) 02/17/19 20:26: PT 12.2, INR 1.04 02/17/19 20:26: WBC 8.9, Hgb 12.9 L, Hct 38.9 L, Plt Count 350 02/17/19 20:26: Sodium 139, Potassium 4.4, BUN 24 H, Creatinine 1.78 H, Glucose 118 H, Magnesium 2.2, Total Bilirubin 0.3, AST 12 L, ALT 25, Alkaline Phosphatase 79, Lipase 245 Assessment & Plan - Problems (Diagnosis) (1) Acute kidney injury Status: Acute (2) Weight loss Status: Acute (3) Anemia Status: Chronic Qualifiers: Anemia type: due to chronic kidney disease Chronic kidney disease stage: stage 3 (moderate) Qualified Code(s): N18.3 - Chronic kidney disease, stage 3 (moderate); D63.1 - Anemia in chronic kidney disease (4) Status post nephrectomy Status: Chronic (5) Hypotension Status: Resolved Qualifiers: Hypotension type: unspecified hypotension type Qualified Code(s): I95.9 - Hypotension, unspecified - Plan Plan: 1. IV hydration 2. Monitor BP closely 3. Monitor renal function closely 4. Adjust blood pressure medicines while in the hospital and reassess and 24 hr 5. Monitor hemodynamics closely 6. GI and DVT prophylaxis Discharge Plan: Home Plan to discharge in: 48 Hours - Advance Directives Does patient have a Living Will: No Does patient have a Durable POA for Healthcare: No - Code Status/Comfort Care Code Status Assessed: Yes Code Status: Full Code Critical Care: No Time Spent Managing PTS Care (In Minutes): 40
--- NOTE | 2019-02-18 06:47 | EKG ---
Test Date: 2019-02-17 Test Time: 20:16:35 Hose Turner: CRISSY MEASUREMENT RESULTS: Intervals: Rate: 70 WI: 196 QRSD: 94 QT: 420 QTc: 453 [place]: P: 54 WI: 196 QRS: -71 T: 10 INTERPRETIVE STATEMENTS: Normal sinus rhythm Pulmonary disease pattern Incomplete right bundle branch block Left anterior fascicular block Abnormal ECG Compared to ECG 08/19/2017 16:41:31 Incomplete right bundle-branch block now present Sinus bradycardia no longer present Ventricular premature complex(es) no longer present ST (T wave) deviation no longer present Electronically Signed On 02-18-19 06:46:02 CDT by Caesar Rojas
[2019-02-18 08:39] VITALS: O2SAT 96
--- NOTE | 2019-02-18 09:45 | RAD REPORT ---
EXAM DESCRIPTION: USExtrem Venous W Compress Bil02/18/2019 9:40 am CLINICAL HISTORY: Leg pain COMPARISON: none FINDINGS: The common femoral, superficial femoral, popliteal and posterior tibial veins bilaterally are compressible and demonstrate augmentation. Doppler demonstrates good flow. IMPRESSION: No evidence of deep venous thrombosis involving either lower extremity.
--- NOTE | 2019-02-18 11:51 | P.SSS ---
Patient History Date of Service: 02/18/19 Reason for admission: Hypotensive/acute kidney injury History of Present Illness: 68-year-old male with significant past medical history with recent nephrectomy who was admitted to the hospital for hypotension after having his blood pressure medication increased at the Medical Center. Allergies No Known Allergies Allergy (Verified 02/18/19 01:41) Home Medications: Candesartan/Hydrochlorothiazid [Candesartan-Hctz 32-25 mg Tab] 0.5 tab PO DAILY #30 tablet 02/18/19 Carvedilol 25 mg PO BID 02/18/19 Doxazosin Mesylate [Cardura] 2 mg PO BEDTIME 02/18/19 Omeprazole 20 mg PO 0630 02/18/19 Pitavastatin Calcium [Livalo] 2 mg PO BEDTIME 02/18/19 Potassium Oral Tab [Klor-Con 10 mEq Tab*] 10 meq PO BID 02/18/19 - Past Medical/Surgical History Has patient received pneumonia vaccine in the past: No Diabetic: No -: hyperlipidemia -: HTN -: GERD -: R radical nephrectomy -: nerve repair right pinky finger -: skin "precancer" removal -: skin area removed L lower leg - Family History Father -: Heart disease, Cancer Notes: skin ca Mother -: Other (see notes) Notes: alzheimers Brother -: Heart disease Sister -: Heart disease - Social History Smoking Status: Never smoker Alcohol use: No CD- Drugs: No Caffeine use: No Place of Residence: Home Review of Systems 10-point ROS is otherwise unremarkable Physical Examination - Vital Signs Temperature: 98.2 F Blood Pressure: 133/78 Pulse: 69 Respirations: 16 Pulse Ox (%): 96 - Physical Exam General: Alert, In no apparent distress HEENT: Atraumatic, PERRLA, Mucous membr. moist/pink, EOMI, Sclerae nonicteric Neck: Supple, 2+ carotid pulse no bruit, No LAD, Without JVD or thyroid abnormality Respiratory: Clear to auscultation bilaterally, Normal air movement Cardiovascular: Regular rate/rhythm, Normal S1 S2 Gastrointestinal: Normal bowel sounds, No tenderness Musculoskeletal: No tenderness Integumentary: No rashes Neurological: Normal gait, Normal speech, Normal strength at 5/5 x4 extr, Normal tone, Normal affect Lymphatics: No axilla or inguinal lymphadenopathy - Studies Laboratory Data (last 24 hrs) 02/17/19 20:26: PT 12.2, INR 1.04 02/17/19 20:26: WBC 8.9, Hgb 12.9 L, Hct 38.9 L, Plt Count 350 02/17/19 20:26: Sodium 139, Potassium 4.4, BUN 24 H, Creatinine 1.78 H, Glucose 118 H, Magnesium 2.2, Total Bilirubin 0.3, AST 12 L, ALT 25, Alkaline Phosphatase 79, Lipase 245 - Diagnosis (Problem(s)) (1) Hypotension Status: Resolved Qualifiers: Hypotension type: unspecified hypotension type Qualified Code(s): I95.9 - Hypotension, unspecified (2) Status post nephrectomy Status: Chronic (3) Anemia Status: Chronic Qualifiers: Anemia type: due to chronic kidney disease Chronic kidney disease stage: stage 3 (moderate) Qualified Code(s): N18.3 - Chronic kidney disease, stage 3 (moderate); D63.1 - Anemia in chronic kidney disease Treatment Summary: Overall during the hospital stay patient remained stable Patient was initially admitted to the hospital for hypotension after having his blood pressure medications increased at the Medical Center status post nephrectomy. Patient was monitored here in the hospital was started on IV fluids. Had marked improvement in his blood pressure and IV fluids were stopped. Patient was then discharged home under stable condition. Was asked to stop taking his diuretic at home and continue with his Coreg and Cardura. Patient was asked to take a blood pressure log and as his blood pressure is less than 120/80 was asked to also hold his Cardura at that time. Patient demonstrate understanding and thus was discharged home under stable condition. - Disposition Disposition: ROUTINE DISCHARGE Condition: GOOD Patient Discharge Instructions: Please f.u with PCP and Surgeon in 1 to 2 week post discharge. Please take 1/2 pill of your Candestran Diet: Regular Activity: Ad juan francisco
[2019-02-18 23:11] VITALS: BP 143/71; TEMP 97.6
--- NOTE | 2019-02-20 14:12 | RAD REPORT ---
EXAM DESCRIPTION: CT - Chest Abd Pelvis Wo Con - 02/18/2019 3:40 am CLINICAL HISTORY: Recent right nephrectomy. Low blood pressure. Abdominal soreness. TECHNIQUE: CT scan of the chest, abdomen and pelvis was performed without intravenous contrast. 5 mm axial images were obtained along with coronal and sagittal reformatted images. DOSE OPTIMIZATION: This facility uses dose optimization techniques as appropriate to perform exams, including at least one of the following techniques: 1. Automated exposure control. 2. Adjustment of the mA and/or kV according to patient size (this includes techniques or standardized protocols for targeted exams where dose is matched to the indication/reason for exam, i.e. extremiti es or head). 3. Use of iterative reconstructive technique. INTRAVENOUS CONTRAST: None. COMPARISON: None. FINDINGS: Lung St: There are no active infiltrates. On axial image #32 there is a 0.4 x 0.4 cm noncalcified pulmonary nodule in the right lower lobe. On axial image #45 there is a noncalcified nodule in the left lower lobe measuring 1.0 x 0.5 cm. Mediastinal Structures: There is very mild atherosclerotic disease about the aortic arch. There is evidence of coronary arterial disease. Pleural Space: Normal. Axillae: Normal. Chest Wall: Normal. Liver: Normal. Spleen: Normal. Pancreas: Normal. Gallbladder: Normal. Adrenal Glands: Normal. Kidneys: Normal post nephrectomy changes are noted on the right. The left kidney is unremarkable. Retroperitoneal Structures: There is moderately severe atherosclerotic disease about the abdominal ao rta Bowel Survey: There is increased stool within the ascending colon and hepatic flexure. There is mild gaseous distention of the transverse colon. The distal ileum is unremarkable. The appendix is unremarkable. Prostate Gland: Normal in size. Urinary Bladder: Normal. Peritoneal Cavity: Normal. Mesenteric Structures: Normal. Abdominal Wall: There is subcutaneous gas identified in the lower abdomen and in the pelvic wall on t he right. There is a small loculated fluid collection identified along the site of previous midline incision in ferior to the umbilicus. The fluid collection measures 2.8 x 1.4 x 2.5 cm. Bony Structures: No suspicious lesions. IMPRESSION: 1. Small loculated fluid collection along the midline incision inferior to the umbilicus . This likely represents a seroma. 2. Increased stool within the ascending colon and hepatic flexure. 3. Mild gaseous distention of the transverse colon. 4. Normal-appearing recent right nephrectomy changes. 5. Bilateral pulmonary nodules. A follow-up CT scan in 3 months, May 2019, recommended to assess stability and to exclude developing metastatic disease. Electronically signed by: Agustin Khan MD 02/17/2019 10:30 PM CDT Due to temporary technical issues with the PACS/Fluency reporting system, reports are being signed by the in house radiologist as a courtesy to ensure prompt reporting. The interpreting radiologist is f ully responsible for the content of the report.
== END 2019-02-18 11:15 | disposition home or self-care (01) ==
LOC: ER 18:26 → 4TH 23:18
PROVIDERS: ADMIT Hospitalist; ATTEND Family Medicine
DX: I95.9 Hypotension, unspecified (principal); Z90.5 Acquired absence of kidney; I12.9 Hypertensive chronic kidney disease with stage 1 through stage 4 chronic kidney disease, or unspecified chronic kidney disease; N18.3 Chronic kidney disease, stage 3 (moderate); D63.1 Anemia in chronic kidney disease; E78.5 Hyperlipidemia, unspecified; K21.9 Gastro-esophageal reflux disease without esophagitis; R63.4 Abnormal weight loss; I45.2 Bifascicular block; R94.31 Abnormal electrocardiogram [ECG] [EKG]; R91.8 Other nonspecific abnormal finding of lung field; R18.8 Other ascites; Z79.899 Other long term (current) drug therapy
CPT/HCPCS: 93005; 87088; 85025 ×2; 87086; 80048; 36415; 86900; 83735; 86850; 85610; 86901; 85379; 80076; 81003; 84484; 83690; 80053; 83880; 71250; 74176; 71045; 93970; 96360; 99285; J7030 ×3; G0378 ×2

== ENCOUNTER 2022-05-31 13:09 | Emergency (ER) | payer OTHER ==
--- OUTSIDE RECORDS SUMMARY | 2022-05-31 14:06 | XMS REPORT | Continuity of Care Document ---
:1950 Author Organization [facility] t Address [address] [place] [address] Care Team Providers Name Role Phone PCP, PATIENT DOES NOT HAVE A Primary Care Physician Unavailtamia Guzman RN, Jennifer Sanchez Attending Clinician Unavailable SHRUTHI PEREIRA Attending Clinician Unavailable Only, Ang Db Test Attending Clinician Unavailable EbShruthi Mcmahon Attending Clinician Marilee Russ MD Attending Clinician MARILEE RUSS Attending Clinician Unavailable MIKAEL WILLIAMSON Attending Clinician Unavailable Doctor Unassigned, Hiram Attending Clinician Unavailable SHAQ NASH Attending Clinician Unavailable ANGELINA PEREZ Attending Clinician Unavailable Payers Payer Name Policy Type Policy Number Effective Date Expiration Date S ource Problems Condition Condition Condition Status Onset Resolution Last Treating Co mments Source Name Details Category Date Date Treatment Clinician Date Right Right Disease Active [facility] kidney kidney -[facility] mass mass 00:00: Hospita 00 l Right Right Disease Active [facility] renal mass renal mass 7-18 st 00:00: Hospita 00 l Gross Gross Disease Active Overview: Method i hematuria hematuria 11-28 Formattin s t 00:00: g of this Hospita 00 note l might be different from the original. Cx and cytologyC T w/ w/o - hematuria protocolC ysto to be scheduled . BPH with BPH with Disease Active Overview: Me thodi obstructio obstructio 5-[address] n/lower n/lower 00:00: g of this Hospi ta urinary urinary 00 note l tract tract might be symptoms symptoms different from the original. PSA and OK todayAnnu al f/u Allergies, Adverse Reactions, Alerts Allergy Allergy Status Severity Reaction(s) Onset Inactive Treating Comm ents Source Name Type Date Date Clinician NO KNOWN Drug Active Univers ALLERGIE Class ity of S [facility] Family History Family Member Diagnosis Comments Start Date Stop Date Source Natural brother No Known Problems [facility] Natural father Cancer [facility] Natural father Skin cancer [facility] Natural mother Alzheimer's disease [facility] Natural sister No Known Problems [facility] Social History Social Habit Start Date Stop Date Quantity Comments Source Exposure to Yes [facility] SARS-CoV-2 [facility] (event) Branch History SDOH [facility] St[facility] Drinks History SDOH [facility] Binge Hospital History SDOH 2020-01-24 2020-01-24 1 [facility] Alcohol Frequency 00:00:00 00:00:00 Hospita l Alcohol intake 2020-01-24 2020-01-24 Current [facility] 00:00:00 00:00:00 non-drinker of Hospital alcohol (finding) Tobacco use and 2018-11-28 2018-11-28 [facility]-user Hospital Sex Assigned At [birth year] [facility] 00:00:00 00:00:00 Hospital Smoking Status Start Date Stop Date Source Unknown if ever [facility] Never smoked tobacco [facility] Medications Ordered Filled Start Stop Current Ordering Indication Dosage Frequency Signature Comments Components Source Medication Medication Date Date Medication? Clinician (SIG) Name Name psyllium Yes QD Take by Method i seed, with 7-[address] dextrose, 11:03: every Hospita (FIBER 18 morning. l ORAL) azithromyci Yes Method i n 7-16 st (ZITHROMAX) 00:00: Hospit a 250 MG 00 l tablet omeprazole Yes TAKE 1 Metho di (PriLOSEC) 5-[address] 20 MG 00:00: MOUTH Hospita capsule 00 EVERY DAY l IN THE MORNING candesartan Yes TAKE 1 Meth ja -hydrochlor 4-[address] othiazid 00:00: MOUTH Hospita 32-25 mg 00 EVERY DAY l tablet IN THE MORNING doxazosin Yes TAKE 1 Method i (CARDURA) 2 4-[address] MG tablet 00:00: MOUTH Hospita 00 EVERYDAY l AT BEDTIME potassium 2019-0 Yes 10meq Q.5D Take 10 Meth ja chloride 4-[address] (K-DUR,KLOR 00:00: mouth 2 Hos mary -CON) 10 00 (two) l MEQ CR times a tablet day. carvedilol 2019-0 Yes 25mg Q.5D Take 25 mg M ethodi (COREG) 25 3-[address] MG tablet 00:00: (two) Hospita 00 times a l day. LIVALO 2 mg 2019-0 Yes 2mg QD Take 2 mg M ethodi tablet 2-[address] 00:00: nightly. Hospita 00 l Immunizations Ordered Immunization Filled Immunization Date Status Commen ts Source Name Name PFIZER COVID-19 MRNA 2020-10-07 Completed Meth odist VACCINATION 00:00:00 Hospital PFIZER COVID-19 MRNA 2020-09-16 Completed Meth odist VACCINATION 00:00:00 Hospital Procedures Procedure Date / Time Performed Performing Clinician [facility] e ASSIGNMENT OF BENEFITS 2021-03-05 15:19:41 Doctor Unassigned, No [facility] Plan of Care Planned Activity Planned Date Details Comments Source Future Scheduled 2022-05-23 HEPATITIS B VACCINES [facility] Test 06:40:13 (1 of 3 - 3-dose series) [code = HEPATITIS B VACCINES (1 of 3 - 3-dose series)] Future Scheduled 2022-05-23 Hepatitis C screening [facility] Test 06:40:13 (procedure) [code = [id number]] Future Scheduled 2022-05-23 SHINGLES VACCINES (1 [facility] Test 06:40:13 of 2) [code = SHINGLES VACCINES (1 of 2)] Future Scheduled 2022-05-23 65+ PNEUMOCOCCAL [facility] Hospital Test 06:40:13 VACCINE (1 - PCV) [code = 65+ PNEUMOCOCCAL VACCINE (1 - PCV)] Future Scheduled 2022-05-23 COVID-19 VACCINE (3 - [facility] Test 06:40:13 Booster for Pfizer series) [code = COVID-19 VACCINE (3 - Booster for Pfizer series)] Future Scheduled 2022-05-23 INFLUENZA VACCINE [facility] Hospital Test 06:40:13 [code = INFLUENZA VACCINE] Future Scheduled 2022-05-23 COLONOSCOPY SCREENING [facility] Test 06:40:13 [code = COLONOSCOPY SCREENING] Encounters Start End Encounter Admission Attending Care Care Encounter Source Date/Time Date/Time Type Type Clinicians Facility Department ID 2021-07-23 2021-07-23 WOJCIECH Toro [id number] Univers 00:00:00 00:00:00 (Out) Jennifer ELMORE [id number] it y of HOSPITAL [id number] Jose as [id number] [address] 2021-07-22 2021-07-22 Outpatient R THERESA [facility] [id number] Univers 09:15:00 09:41:[address] [facility] 2021-07-22 2021-07-22 Laboratory Only, Ang Db Test [facility] 1.2.8 [id number] [id number] Univers 09:15:00 09:30:00 Only Theresa [employer] [id number] ity of [place] [id number] Jose as FAVOI?BLEA [id number] [address] MEDICAL OFFICE [facility] 2021-04-14 2021-04-14 WOJCIECH Toro [id number] Univers 00:00:00 00:00:00 (Out) Jennifer ELMORE [id number] it y of [facility] [id number] Jose as [id number] [address] 2021-04-13 2021-04-13 Laboratory Only, Ang Db Test [facility] 1.2.8 40.114 [id number] Univers 09:11:26 09:26:[address] [id number] ity of [place] [id number] Jose as Favio?Blea [id number] [address] Medical Office Building 2021-04-13 2021-04-13 [facility] [id number] Univers 09:15:00 09:15:00 MARILEE rosa [facility] 2021-03-06 2021-03-06 Letter WOJCIECH Guzman [id number] [facility] 00:00:00 00:00:00 (Out) Jennifer Sanchez RAMÍREZ [id number] it y of [facility] [id number] Jose as [id number] [facility] 019 Branch 2021-03-05 2021-03-05 Outpatient Ruy WILLIAMSON [facility] [id number] [facility] 10:40:00 10:40:00 MIKAEL ity [facility] 2021-03-05 2021-03-05 Orders Doctor JEFFREY [id number] [facility] 00:00:00 00:00:00 Only Unassigned, RAMÍREZ [id number] ity of Hiram [facility] [id number] Jose as [id number] [facility] 009 Branch 2021-01-23 2021-01-23 Outpatient GLENROY [facility] [id number] [place] 00:00:00 00:00:00 SHAQ Chao [address] 2020-10-07 2020-10-07 Outpatient ANA, [facility] [id number] [place] 00:00:00 00:00:00 ANGELINA [address] 2020-09-16 2020-09-16 Outpatient [facility] [id number] [place] 00:00:00 00:00:[address] 2020-01-24 2020-01-24 Outpatient JIMMYGEOFFREY [facility] [id number] [place] 00:00:00 00:00:00 SHAQ Chao [address] Results This patient has no known results.
--- NOTE | 2022-05-31 14:12 | RAD REPORT ---
EXAM DESCRIPTION: CT - Head Brain Wo Cont - 05/31/2022 1:54 pm CLINICAL HISTORY: headache, ear fullness, high bp COMPARISON: <Comparisons> TECHNIQUE: All CT scans are performed using dose optimization technique as appropriate and may inclu de automated exposure control or mA/KV adjustment according to patient size. FINDINGS: No intracranial hemorrhage, hydrocephalus or extra-axial fluid collection.No areas of brai n edema or evidence of midline shift. The paranasal sinuses and mastoids are clear. The calvarium is intact. IMPRESSION: No acute intracranial abnormality.
--- NOTE | 2022-05-31 16:17 | EDPHYS ---
Physician Documentation [facility] Name: Robles Sam Age: 71 yrs Sex: Male : 1950 Arrival Date: 05/31/2022 Time: 13:14 Bed 15 Private MD: Esteban Ji T ED Physician Sourav Matthews HPI: 05/31 16:33 This 71 yrs old Male presents to ER via Ambulatory with complaints of High Blood kb Pressure, Ear Pain. 16:33 The patient has elevated blood pressure and discovered this at home. Onset: The kb symptoms/episode began/occurred 6 day(s) ago. Modifying factors: The symptoms are aggravated by discontinuation of meds, The symptoms are alleviated by prescription meds. Associated signs and symptoms: Pertinent positives: headache, ear fullness. Severity of symptoms: At its worst the blood pressure was 200 mm Hg, in the emergency department the blood pressure is improved, 170 mm Hg. The patient has experienced similar episodes in the past. The patient has not recently seen a physician. Pt reports he recently decreased his hydralazine 100mg from three times a day to once a day. states his bp has been high for the last 6 days with headache and ear fullness. States he took a second hydralazine at lunchtime prior to arrival. Denies chest pain, shortness of breath, n/v/d. Historical: - Allergies: 13:38 No Known Allergies; vg1 - Home Meds: 13:38 Hydralazine Oral [Active]; carvedilol 25 mg Oral tab 1 tab 2 times per day [Active]; vg1 doxazosin oral [Active]; candesartan oral [Active]; Furosemide Oral [Active]; - PMHx: 13:38 Hyperlipidemia; Hypertension; vg1 - Immunization history:: Client reports receiving the 2nd dose of the Covid vaccine. - Social history:: Smoking status: Patient denies any tobacco usage or history of. ROS: 16:31 Constitutional: Negative for fever, chills, and weight loss. kb 16:31 ENT: Positive for ear fullness. 16:31 Neuro: Positive for headache. 16:31 All other systems are negative. Exam: 14:41 Constitutional: This is a well developed, well nourished patient who is awake, alert, kb and in no acute distress. Head/Face: Normocephalic, atraumatic. ENT: Moist Mucous membranes Cardiovascular: Regular rate and rhythm with a normal S1 and S2. No gallops, murmurs, or rubs. No pulse deficits. Respiratory: Respirations even and unlabored. No increased work of breathing. Talking in full sentences Abdomen/GI: Soft, non-tender. No distention Skin: Warm, dry with normal turgor. Normal color. MS/ Extremity: Pulses equal, no cyanosis. Neurovascular intact. Full, normal range of motion. Neuro: Awake and alert, GCS 15, oriented to person, place, time, and situation. Moves all extremities. Normal gait. Psych: Awake, alert, with orientation to person, place and time. Behavior, mood, and affect are within normal limits. 14:41 ECG was reviewed by the Attending Physician. 14:42 ENT: External ear(s): are unremarkable, Ear canal(s): are normal, TM's: are normal. kb Vital Signs: 13:36 BP 170 / 88; Pulse 64; Resp 18; Temp 97.4; Pulse Ox 98% ; Weight 117.93 kg; Height 6 vg1 ft. 1 in. (185.42 cm); Pain 0/10; 14:50 BP 140 / 70; Pulse 59; Resp 16; Pulse Ox 98% on R/A; tp1 15:00 BP 130 / 73; Pulse 54; Resp 16; Pulse Ox 96% on R/A; tp1 16:37 BP 138 / 80; Pulse 51; Resp 16; Pulse Ox 100% ; tp1 13:36 Body Mass Index 34.30 (117.93 kg, 185.42 cm) vg1 MDM: 13:37 Patient medically screened. kb 16:29 Data reviewed: vital signs, nurses notes. Data interpreted: Pulse oximetry: on room air kb is 98 %. Interpretation: normal. Counseling: I had a detailed discussion with the patient and/or guardian regarding: the historical points, exam findings, and any diagnostic results supporting the discharge/admit diagnosis, radiology results, the need for outpatient follow up, a family practitioner, to return to the emergency department if symptoms worsen or persist or if there are any questions or concerns that arise at home. ED course: BP decreased, symptoms improved. Will discharge home. Pt will follow up with PCP about medication regimen. . 05/31 13:38 Order name: CT Head Brain wo Cont; Complete Time: 14:20 kb 05/31 13:38 Order name: EKG; Complete Time: 13:39 kb 05/31 13:38 Order name: EKG - Nurse/Tech; Complete Time: 14:50 kb 05/31 14:41 Order name: Vital Signs; Complete Time: 14:50 kb EC:41 Rate is 65 beats/min. Rhythm is regular. Left axis deviation noted. OH interval is kb prolonged at 210 msec. QRS interval is normal at 96 msec. QT interval is normal at 457 msec. Administered Medications: No medications were administered Disposition Summary: 05/31/22 16:16 Discharge Ordered Location: Home kb Condition: Stable kb Diagnosis - Essential (primary) hypertension kb Followup: kb - With: Emergency Department - When: As needed - Reason: Worsening of condition Followup: kb - With: Private Physician - When: 2 - 3 days - Reason: Recheck today's complaints, Continuance of care, Re-evaluation by your physician Discharge Instructions: - Discharge Summary Sheet kb - Hypertension, Adult, [id number] kb Forms: - Medication Reconciliation Form kb - Thank You Letter kb - Antibiotic Education kb - Prescription Opioid Use kb Addendum: 06/04/2022 09:41 Co-signature as Attending Physician, Sourav Matthews MD I agree with the assessment and c maurer plan of care. Signatures: Dispatcher [employer] Reina Landry, SPECIAL DELIVERY MESSENGER-C SPECIAL DELIVERY MESSENGER-Sourav Barriga MD MD cha Garcia, Victoria, RN RN vg1 Corrections: (The following items were deleted from the chart) 05/31 16:35 16:33 Pt reports he recently decreased his hydralazine 100mg from three times a day to kb once a day. states his bp has been high for the last 6 days with headache and ear fullness. States he took a second hydralazine at lunchtime prior to arrival. . kb
--- NOTE | 2022-05-31 16:17 | ER ---
Nurse's Notes [facility] Name: Robles Sam Age: 71 yrs Sex: Male : 1950 Arrival Date: 05/31/2022 Time: 13:14 Bed 15 Private MD: Esteban Ji T Diagnosis: Essential (primary) hypertension Presentation: 05/31 13:36 Chief complaint: Patient states: HBP since Wednesday05/26/22 and headache and fullness vg1 to KENZIE ears. Coronavirus screen: Vaccine status: Patient reports receiving the 2nd dose of the covid vaccine. Client denies travel out of the [place] in the last 14 days. Ebola Screen: Patient negative for fever greater than or equal to 101.5 degrees Fahrenheit, and additional compatible Ebola Virus Disease symptoms. Initial Sepsis Screen: Does the patient meet any 2 criteria? No. Patient's initial sepsis screen is negative. Does the patient have a suspected source of infection? No. Patient's initial sepsis screen is negative. Risk Assessment: Do you want to hurt yourself or someone else? Patient reports no desire to harm self or others. Onset of symptoms was May 26, 2022. 13:36 Method Of Arrival: Ambulatory vg1 13:36 Acuity: NANETTE 3 vg1 Triage Assessment: 13:38 General: Appears in no apparent distress. comfortable, Behavior is calm, cooperative. vg1 Pain: Complains of pain in head Pain currently is 0 out of 10 on a pain scale. EENT: Reports KENZIE ear 'fullness". Historical: - Allergies: 13:38 No Known Allergies; vg1 - Home Meds: 13:38 Hydralazine Oral [Active]; carvedilol 25 mg Oral tab 1 tab 2 times per day [Active]; vg1 doxazosin oral [Active]; candesartan oral [Active]; Furosemide Oral [Active]; - PMHx: 13:38 Hyperlipidemia; Hypertension; vg1 - Immunization history:: Client reports receiving the 2nd dose of the Covid vaccine. - Social history:: Smoking status: Patient denies any tobacco usage or history of. Screenin:55 Abuse screen: Denies threats or abuse. Denies injuries from another. Nutritional tp1 screening: No deficits noted. Tuberculosis screening: No symptoms or risk factors identified. Fall Risk None identified. Assessment: 14:50 General: Appears in no apparent distress. comfortable, Behavior is calm, cooperative. tp1 Pain: Denies pain. Neuro: Level of Consciousness is awake, alert, obeys commands, Oriented to person, place, time, situation. Cardiovascular: Patient's skin is warm and dry. Respiratory: Airway is patent Respiratory effort is even, unlabored. GI: Abdomen is obese. : No signs and/or symptoms were reported regarding the genitourinary system. EENT: Ear canal clear on right ear and left ear Reports decreased hearing in right ear and left ear headache when bending over . Derm: Skin is pink, warm \\T\\ dry. Musculoskeletal: Circulation, motion, and sensation intact. 15:57 Reassessment: Patient appears in no apparent distress at this time. No changes from tp1 previously documented assessment. Patient and/or family updated on plan of care and expected duration. Pain level reassessed. Patient is alert, oriented x 3, equal unlabored respirations, skin warm/dry/pink. Patient denies pain at this time. Vital Signs: 13:36 BP 170 / 88; Pulse 64; Resp 18; Temp 97.4; Pulse Ox 98% ; Weight 117.93 kg; Height 6 vg1 ft. 1 in. (185.42 cm); Pain 0/10; 14:50 BP 140 / 70; Pulse 59; Resp 16; Pulse Ox 98% on R/A; tp1 15:00 BP 130 / 73; Pulse 54; Resp 16; Pulse Ox 96% on R/A; tp1 16:37 BP 138 / 80; Pulse 51; Resp 16; Pulse Ox 100% ; tp1 13:36 Body Mass Index 34.30 (117.93 kg, 185.42 cm) vg1 ED Course: 13:14 Patient arrived in ED. am2 13:14 Esteban Ji MD is Private Physician. am2 13:23 Reina Casillas [facility]-C [facility]. kb 13:23 Sourav Matthews MD is Attending Physician. kb 13:38 Triage completed. vg1 13:38 Arm band placed on. vg1 13:56 CT Head Brain wo Cont In Process Unspecified. EDMS 14:47 Erin Grubbs, RN is Primary Nurse. tp1 14:50 Patient has correct armband on for positive identification. Bed in low position. Call tp1 light in reach. Adult w/ patient. 16:39 No provider procedures requiring assistance completed. Patient did not have IV access tp1 during this emergency room visit. Administered Medications: No medications were administered Medication: 16:39 VIS not applicable for this client. tp1 Outcome: 16:16 Discharge ordered by . kan 16:39 Discharged to home ambulatory, with family. tp1 16:39 Condition: good 16:39 Discharge instructions given to patient, family, Instructed on discharge instructions, follow up and referral plans. Demonstrated understanding of instructions, follow-up care. 16:40 Patient left the ED. tp1 Signatures: Dispatcher [employer] EDIN Reina Casillas, TILE DESIGNER-C TILE DESIGNER-Zhanna Foster Victoria, RN RN vg1 Erin Grubbs RN RN tp1
[2022-05-31 16:44] VITALS: TEMP 97.4
[2022-05-31 16:48] VITALS: BP 138/80; O2SAT 100
--- NOTE | 2022-06-01 15:08 | EKG ---
Test Date: 2022-05-31 Test Time: 14:29:20 Meat Team Member: BP MEASUREMENT RESULTS: Intervals: Rate: 65 DE: 210 QRSD: 96 QT: 440 QTc: 457 [place]: P: 74 DE: 210 QRS: -72 T: 32 INTERPRETIVE STATEMENTS: Sinus rhythm with marked sinus arrhythmia with 1st degree AV block with occasional premature ventricular complexes Left axis deviation Incomplete right bundle branch block Inferior infarct, age undetermined Abnormal ECG Compared to ECG 02/17/2019 20:16:35 Ventricular premature complex(es) now present First degree AV block now present Left-axis deviation now present Myocardial infarct finding now present Left anterior fascicular block no longer present Electronically Signed On 06-01-22 15:07:24 SPECIAL EDUCATION PRESCHOOL TEACHER by Antonio Sanchez
== END 2022-05-31 16:40 | disposition home or self-care (01) ==
LOC: ER 13:09
DX: I10 Essential (primary) hypertension (principal); E78.5 Hyperlipidemia, unspecified
CPT/HCPCS: 70450; 93005; 99283

== ENCOUNTER 2022-06-13 09:40 | Emergency (ER) | payer OTHER ==
--- OUTSIDE RECORDS SUMMARY | 2022-06-13 09:43 | XMS REPORT | Continuity of Care Document ---
:1950 Author Organization [facility] t Address [address] [place] [address] Care Team Providers Name Role Phone PCP, PATIENT DOES NOT HAVE A Primary Care Physician Unavailtamia Guzman RN, Jennifer Sanchez Attending Clinician Unavailable SHRUTHI PEREIRA Attending Clinician Unavailable Only, Ang Db Test Attending Clinician Unavailable EbShruthi Mcmahon Attending Clinician Marilee Russ MD Attending Clinician MARILEE RUSS Attending Clinician Unavailable MIKAEL WILLIAMSON Attending Clinician Unavailable Doctor Unassigned, [place] Attending Clinician Unavailable SHAQ NASH Attending Clinician [...] Disease Active Overview: Method i hematuria hematuria - Formattin s t 00:00: g of this [...] Active Univers ALLERGIE Class ity of [facility] Family History Family Member Diagnosis Comments Start Date Stop Date Source Natural brother No Known Problems [facility] Natural father Cancer [facility] Natural father Skin cancer [facility] Natural mother Alzheimer's disease [facility] Natural sister No Known Problems [facility] Social History Social Habit Start Date Stop Date Quantity Comments Source Exposure to Yes [facility] SARS-CoV-2 [facility] (event) Branch History SDOH Muslim Alcohol Std Hospital Drinks History SDOH Muslim Alcohol Binge Hospital History SDOH 2020-01-24 2020-01-24 1 Muslim Alcohol Frequency 00:00:00 00:00:00 Hospita l Alcohol intake 2020-01-24 2020-01-24 Current Muslim 00:00:00 00:00:00 non-drinker of Hospital alcohol (finding) Tobacco use and 2018-11-28 2018-11-28 [facility]00 non-user Hospital Sex Assigned At [birth year] Muslim 00:00:00 00:00:00 Hospital Smoking Status Start Date Stop Date Source Unknown if ever smoked [facility] Never smoked tobacco Muslim H ospital Medications Ordered Filled Start Stop Current Ordering Indication Dosage Frequency Signature Comments Components Source Medication Medication Date Date Medication? Clinician (SIG) Name Name psyllium Yes QD Take by Method i seed, with 7-[address] dextrose, 11:03: every Hospita (FIBER 18 morning. l ORAL) psyllium 2018- Yes QD Take by Method i seed, with 7-[address] dextrose, 11:03: every Hospita (FIBER 18 morning. l ORAL) azithromyci 2019 Yes Method i n 7-16 st (ZITHROMAX) 00:00: Hospit a 250 MG 00 l tablet azithromyci Yes [facility] i n 7-16 st (ZITHROMAX) 00:00: Hospit a 250 MG 00 l tablet omeprazole Yes TAKE 1 Metho di (PriLOSEC) 5-[address] 20 MG 00:00: MOUTH Hospita capsule 00 EVERY DAY l IN THE MORNING omeprazole Yes TAKE 1 Metho di (PriLOSEC) 5-[address] 20 MG 00:00: MOUTH Hospita capsule 00 EVERY DAY l IN THE MORNING candesartan Yes TAKE 1 Meth ja -hydrochlor 4-[address] othiazid 00:00: MOUTH Hospita 32-25 mg 00 EVERY DAY l tablet IN THE MORNING candesartan Yes TAKE 1 Meth ja -hydrochlor 4-[address] othiazid 00:00: MOUTH Hospita 32-25 mg 00 EVERY DAY l tablet IN THE MORNING doxazosin Yes TAKE 1 Method i (CARDURA) 2 4-[address] MG tablet 00:00: MOUTH Hospita 00 EVERYDAY l AT BEDTIME doxazosin Yes TAKE 1 Method i (CARDURA) 2 4-[address] MG tablet 00:00: MOUTH Hospita 00 EVERYDAY l AT BEDTIME potassium Yes 10meq Q.5D Take 10 Meth ja chloride 4-[address] (K-DUR,KLOR 00:00: mouth 2 Hos mary -CON) 10 00 (two) l MEQ CR times a tablet day. potassium Yes 10meq Q.5D Take 10 Meth ja chloride 4-[address] (K-DUR,KLOR 00:00: mouth 2 Hos mary -CON) 10 00 (two) l MEQ CR times a tablet day. carvedilol Yes 25mg Q.5D Take 25 mg M ethodi (COREG) 25 3-[address] MG tablet 00:00: (two) Hospita 00 times a l day. carvedilol Yes 25mg Q.5D Take 25 mg M ethodi (COREG) 25 3-[address] MG tablet 00:00: (two) Hospita 00 times a l day. LIVALO 2 mg 2018-0 Yes 2mg QD Take 2 mg M ethodi tablet 2-[address] 00:00: nightly. Hospita 00 l LIVALO 2 mg 2018- Yes 2mg QD Take 2 mg M ethodi tablet 2-[address] 00:00: nightly. Hospita 00 l Immunizations Ordered Immunization Filled Immunization Date Status Commen ts Source Name Name [facility] COVID-19 MRNA 2020-10-07 Completed [facility] VACCINATION 00:00:00 Hospital PFIZER COVID-19 MRNA 2020-10-07 Completed [facility] VACCINATION 00:00:00 Hospital PFIZER COVID-19 MRNA 2020-09-16 Completed [facility] odist VACCINATION 00:00:00 Hospital PFIZER COVID-19 MRNA 2020-09-16 Completed Meth odist VACCINATION 00:00:00 Hospital Procedures Procedure Date / Time Performed Performing Clinician [facility] ASSIGNMENT OF BENEFITS 2021-03-05 15:19:41 Doctor Unassigned, No [facility] Plan of Care Planned Activity Planned Date Details Comments Source Future Scheduled 2022-05-23 HEPATITIS B VACCINES [facility] Test 06:40:13 (1 of 3 - 3-dose series) [code = HEPATITIS B VACCINES (1 of 3 - 3-dose series)] Future Scheduled 2022-05-23 Hepatitis C screening [facility] Test 06:40:13 (procedure) [code = 367575513] Future Scheduled 2022-05-23 SHINGLES VACCINES (1 [facility] Test 06:40:13 of 2) [code = SHINGLES VACCINES (1 of 2)] Future Scheduled 2022-05-23 65+ PNEUMOCOCCAL [facility] Test 06:40:13 VACCINE (1 - PCV) [code = 65+ PNEUMOCOCCAL VACCINE (1 - PCV)] Future Scheduled 2022-05-23 COVID-19 VACCINE (3 - [facility] Test 06:40:13 Booster for Pfizer series) [code = COVID-19 VACCINE (3 - Booster for Pfizer series)] Future Scheduled 2022-05-23 INFLUENZA VACCINE [email or web address] Test 06:40:13 [code = INFLUENZA VACCINE] Future Scheduled 2022-05-23 COLONOSCOPY SCREENING [facility] Test 06:40:13 [code = COLONOSCOPY SCREENING] Future Scheduled 2022-05-23 HEPATITIS B VACCINES [facility] Test 06:40:13 (1 of 3 - 3-dose series) [code = HEPATITIS B VACCINES (1 of 3 - 3-dose series)] Future Scheduled 2022-05-23 Hepatitis C screening [facility] Test 06:40:13 (procedure) [code = 552051009] Future Scheduled 2022-05-23 SHINGLES VACCINES (1 [facility] Test 06:40:13 of 2) [code = SHINGLES VACCINES (1 of 2)] Future Scheduled 2022-05-23 65[facility] [facility] Test 06:40:13 VACCINE (1 - PCV) [code = 65+ PNEUMOCOCCAL VACCINE (1 - PCV)] Future Scheduled 2022-05-23 COVID-19 VACCINE (3 - [facility] Test 06:40:13 Booster for Pfizer series) [code = COVID-19 VACCINE (3 - Booster for Pfizer series)] Future Scheduled 2022-05-23 INFLUENZA VACCINE [facility] Test 06:40:13 [code = INFLUENZA VACCINE] Future Scheduled 2022-05-23 COLONOSCOPY SCREENING [facility] Test 06:40:13 [code = COLONOSCOPY SCREENING] Encounters Start End Encounter Admission Attending Care Care Encounter Source Date/Time Date/Time Type Type Clinicians Facility Department ID 2021-07-23 2021-07-23 Letter WOJCIECH Guzman [id number] Univers 00:00:00 00:00:00 (Out) Jennifer ELMORE [id number] it y of [facility] [id number] Jose as [phone] [address] 2021-07-22 2021-07-22 Outpatient R THERESA [facility] [id number] Univers 09:15:00 09:41:47 [facility] 2021-07-22 2021-07-22 Laboratory Only, Ang Db Test [facility] 1.2.8 40.114 [id number] Univers 09:15:00 09:30:00 Only [facility] [id number] ity [facility] [id number] Jose as FAVIO?BLEA [phone] [address] MEDICAL OFFICE BUILDING 2021-04-14 2021-04-14 Letter WOJCIECH Guzman [id number] Univers 00:00:00 00:00:00 (Out) Jennifer ELMORE [id number] it y of [facility] [id number] Jose as [phone] [address] 2021-04-13 2021-04-13 Laboratory Only, Ang Db Test [facility] 1.2.8 40.114 [id number] Univers 09:11:26 09:26:26 Only Marilee Russ [facility] [id number] ity of [place] [id number] Jose as Favio?Blea [phone] Wi pierre [address] Medical Office Building 2021-04-13 2021-04-13 Outpatient Ruy RUSS [facility] [id number] [facility] 09:15:00 09:15:00 MARILEE ity of [facility] 2021-03-06 2021-03-06 Letter WOJCIECH Guzman [id number] Univers 00:00:00 00:00:00 (Out) Jennifer Sanchez RAMÍREZ [id number] it y of [facility] [id number] Jose as [phone] [address] 2021-03-05 2021-03-05 Outpatient Ruy WILLIAMSON [facility] [id number] [facility] 10:40:00 10:40:00 MIKAEL ity of [facility] 2021-03-05 2021-03-05 Orders Doctor WOJCIECH [id number] [facility] 00:00:00 00:00:00 Only Unassigned, RAMÍREZ [id number] ity of [place] [facility] [id number] Jose as [phone] [address] 2021-01-23 2021-01-23 Outpatient JIMMYGEOFFREY [facility] [id number] [place] 00:00:00 00:00:00 SHAQ Chao [address] 2020-10-07 2020-10-07 Outpatient ANA [facility] [id number] [place] 00:00:00 00:00:00 ANGELINA [address] 2020-09-16 2020-09-16 Outpatient [facility] [id number] [place] 00:00:00 00:00:[address] 2020-01-24 2020-01-24 Outpatient SATABIMAEL [facility] [id number] [place] 00:00:00 00:00:00 SHAQ Chao [address] Results This patient has no known results.
--- NOTE | 2022-06-13 10:04 | EDPHYS ---
Physician Documentation [facility] Name: Robles Sam Age: 71 yrs Sex: Male : 1950 Arrival Date: 06/13/2022 Time: 09:44 Bed 10 Private MD: ED Physician Vinay Knight HPI: 06/13 09:59 This 71 yrs old Male presents to ER via Ambulatory with complaints of Cold Symptoms. jmm 09:59 Onset: The symptoms/episode began/occurred gradually, 1 week(s) ago. Modifying factors: jmm The symptoms are alleviated by nothing. the symptoms are aggravated by nothing. This is a 71 year old male with a history of hlp, htn that presents to the ED with complaints of congestion, sore throat beginning approx 1 week ago. Denies vomiting, sob. Does have a slight cough as well. . 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 - Social history:: Smoking status: Patient denies any tobacco usage or history of. ROS: 09:59 Constitutional: Negative for fever, chills, and weight loss. jmm 09:59 ENT: Positive for ear pain, sore throat. 09:59 ENT: Positive for sinus congestion. 09:59 Respiratory: Positive for cough. 09:59 All other systems are negative. Exam: 09:59 Constitutional: This is a well developed, well nourished patient who is awake, alert, jmm and in no acute distress. Head/Face: atraumatic. Eyes: EOMI, no conjunctival erythema appreciated 09:59 Neck: Trachea midline, Supple Chest/axilla: Normal chest wall appearance and motion. Cardiovascular: Regular rate and rhythm. No edema appreciated Respiratory: Normal respirations, no respiratory distress appreciated Abdomen/GI: Non distended Back: Normal ROM Skin: General appearance color normal MS/ Extremity: Moves all extremities, no obvious deformities appreciated, no edema noted to the lower extremities Neuro: Awake and alert Psych: Behavior is normal, Mood is normal, Patient is cooperative and pleasant 09:59 ENT: TM's: erythema, that is moderate. Vital Signs: 09:46 BP 160 / 89; Pulse 82; Resp 18; Temp 98.1; Pulse Ox 98% ; Weight 113.4 kg; Height 6 ft. tw5 1 in. (185.42 cm); Pain 07/28; 09:46 Body Mass Index 32.98 (113.40 kg, 185.42 cm) tw5 MDM: 09:58 Patient medically screened. [facility] 10:00 Data reviewed: vital signs, nurses notes. Counseling: I had a detailed discussion with galina the patient and/or guardian regarding: the historical points, exam findings, and any diagnostic results supporting the discharge/admit diagnosis, the need for outpatient follow up, to return to the emergency department if symptoms worsen or persist or if there are any questions or concerns that arise at home. ED course: Patient is alert and non toxic in appearance in the ED. No signs of resp distress. patient is advised to follow up with pcp and otherwise given strict return precautions. patient understood and agrees with the plan of care. . 06/13 10:17 Order name: Chest Single View XRAY; Complete Time: 11:49 [facility] Administered Medications: 10:17 Drug: Decadron (dexamethasone) 10 mg Route: IM; Site: right deltoid; jl7 Disposition: 15:19 Co-signature as Attending Physician, Vinay SNOWDEN was immediately available on-site ms3 in the Emergency Department for consultation in the care of the patient. Disposition Summary: 06/13/22 11:51 Discharge Ordered Location: Home(06/13/22 11:51) [facility] Condition: Stable(06/13/22 11:51) [facility] Diagnosis - Acute serous otitis media, left ear(06/13/22 11:51) [facility] Followup: [facility] - With: Private Physician - When: 2 - 3 days - Reason: Recheck today's complaints, Continuance of care, Re-evaluation by your physician Discharge Instructions: - Discharge Summary Sheet [facility] - Otitis Media, Adult [facility] Forms: - Medication Reconciliation Form [facility] - Thank You Letter [facility] - Antibiotic Education [facility] - Prescription Opioid Use [facility] Prescriptions: - cefdinir 300 mg Oral capsule - take 1 capsule by ORAL route every 12 hours for 10 days; 20 capsule; Refills: [facility] 0, Product Selection Permitted Signatures: Dispatcher [employer] Alexandro Davis PA PA jmm Leal, Jahala, RN RN jl7 Vinay Knight DO DO ms3 Erin Silva tw5 Corrections: (The following items were deleted from the chart) 09:49 09:48 PSHx: kidney removal- left; tw tw 10:03 Home [facility] 10:03 Stable [facility] 10:03 Acute serous otitis media, left ear [facility]
--- NOTE | 2022-06-13 10:04 | ER ---
Nurse's Notes [facility] Name: Robles Sam Age: 71 yrs Sex: Male : 1950 Arrival Date: 06/13/2022 Time: 09:44 Bed 10 Private MD: Diagnosis: Acute serous otitis media, left ear Presentation: 06/13 09:46 Chief complaint: Patient states: "I have had a cold for the last week. Yesterday I tw5 started getting pain in my back that felt like a pin sticking me in the back and it feels like it has moved through to the middle of my chest. I feel like I have a lot of fluid in my chest and I am concerned if I a pleurisy or pneumonia.". Coronavirus screen: Vaccine status: Patient reports receiving the 2nd dose of the covid vaccine. [employer]. Ebola Screen: Patient negative for fever greater than or equal to 101.5 degrees Fahrenheit, and additional compatible Ebola Virus Disease symptoms Patient denies exposure to infectious person. Patient denies travel to an Ebola-affected area in the 21 days before illness onset. Initial Sepsis Screen: Does the patient meet any 2 criteria? No. Patient's initial sepsis screen is negative. Does the patient have a suspected source of infection? No. Patient's initial sepsis screen is negative. Risk Assessment: Do you want to hurt yourself or someone else? Patient reports no desire to harm self or others. Onset of symptoms is unknown. 09:46 Method Of Arrival: Ambulatory tw5 09:46 Acuity: NANETTE 3 tw5 Triage Assessment: 09:48 General: Appears in no apparent distress. Behavior is calm, cooperative, appropriate tw5 for age. Pain: Pain currently is 1 out of 10 on a pain scale. 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 - Social history:: Smoking status: Patient denies any tobacco usage or history of. Screenin:13 Abuse screen: Denies threats or abuse. Denies injuries from another. Nutritional jl7 screening: No deficits noted. Tuberculosis screening: No symptoms or risk factors identified. Fall Risk None identified. Assessment: 10:00 Reassessment: On discharge request x-ray for sharp pain on inspiration, ERP notified jl7 and chest x-ray ordered. 12:13 Reassessment: ERP reports chest xray was negative, pt updated and discharged at this jl7 time. Vital Signs: 09:46 BP 160 / 89; Pulse 82; Resp 18; Temp 98.1; Pulse Ox 98% ; Weight 113.4 kg; Height 6 ft. tw5 1 in. (185.42 cm); Pain 07/28; 09:46 Body Mass Index 32.98 (113.40 kg, 185.42 cm) tw5 ED Course: 09:44 Patient arrived in ED. as 09:46 Alexandro Denis PA is PHCP. [facility] 09:46 Vinay Knight DO is Attending Physician. jmm 09:48 Triage completed. tw5 09:48 Arm band placed on. tw5 10:17 Ta Rodriguez RN is Primary Nurse. jl7 11:27 Chest Single View XRAY In Process Unspecified. EDMS 12:13 Patient has correct armband on for positive identification. jl7 12:13 No provider procedures requiring assistance completed. Patient did not have IV access jl7 during this emergency room visit. Administered Medications: 10:17 Drug: Decadron (dexamethasone) 10 mg Route: IM; Site: right deltoid; jl7 Medication: 12:13 VIS not applicable for this client. jl7 Outcome: 10:03 Discharge ordered by MD. jmm 11:51 Discharge ordered by MD. jmm 12:13 Discharged to home ambulatory. jl7 12:13 Condition: stable 12:13 Discharge instructions given to patient, Instructed on discharge instructions, follow up and referral plans. medication usage, Demonstrated understanding of instructions, follow-up care, medications, Prescriptions given X 1. 12:14 Patient left the ED. jl7 Signatures: Dispatcher [employer] EDMS Alexandro Denis PA PA jmm Martinez, Amelia as Ta Rodriguez RN RN ray7 Erin Silva tw Corrections: (The following items were deleted from the chart) 09:49 09:48 PSHx: kidney removal- left; tw5 tw5
[2022-06-13] MEDS ORDERED: dexAMETHasone 10 MG/ML VIAL ONE (10:09)
--- NOTE | 2022-06-13 11:48 | RAD REPORT ---
EXAM DESCRIPTION: RAD - Chest Single View - 06/13/2022 11:25 am CLINICAL HISTORY: cough, fever COMPARISON: Chest Pa And Lat (2 Views) dated 10/13/2021; Chest Single View dated 02/17/2019 FINDINGS: Lines: None. Lungs: No evidence of edema or pneumonia. Pleural: No significant pleural effusions or pneumothorax. Cardiac: The heart size is within normal limits. Mediastinum: Within normal limits. Bones: No acute fractures. Other: None IMPRESSION: No acute cardiopulmonary disease.
[2022-06-13 12:18] VITALS: BP 160/89; TEMP 98.1; O2SAT 98
== END 2022-06-13 12:14 | disposition home or self-care (01) ==
LOC: ER 09:40
DX: H65.02 Acute serous otitis media, left ear (principal); R09.81 Nasal congestion; I10 Essential (primary) hypertension
CPT/HCPCS: 71045; 96372; 99283; J1100

== ENCOUNTER 2024-01-04 18:16 | Emergency (ER) | payer OTHER ==
[2024-01-04 19:20] LABS: Absolute Eosinophils 0.4 K/uL (0-0.5); Absolute Lymphocytes (CBC) 1.4 K/uL (0.7-4.9); Absolute Monocytes 0.9 K/uL (0.1-1.3); Absolute Neutrophil 3.3 K/uL (1.8-8.0); Basophils % 0.8 % (0-1.3); Eosinophils % 6.8 % (0-4.4); Hematocrit 31.5 % (39.6-49.0); Hemoglobin 10.6 g/dL (13.6-17.9); MCH 26.2 pg (27.0-35.0); MCHC 33.5 g/dL (32.0-36.0); MCV 78.1 fL (80-100); Monocytes % 15.2 % (3.3-12.3); Neutrophils % 54.2 % (41.7-73.7); Nucleated Red Blood Cells % 0.1 % (0-0); Platelets 193 thou/uL (152-406); RBC Red Blood Cell Count 4.04 M/uL (4.33-5.43); Red Cell Distribution Width 15.7 % (12.1-15.2)
[2024-01-04 19:39] LABS: Anion Gap 7.4 mEq/L (5.0-15.0); Potassium 3.4 mEq/L (3.5-5.1)
--- NOTE | 2024-01-04 20:31 | RAD REPORT ---
EXAM DESCRIPTION: CT - Soft Tissue Neck W/Contr CLINICAL HISTORY: SWELLING Neck pain, swelling COMPARISON: No comparisons TECHNIQUE All CT scans are performed using dose optimization technique as appropriate and may includ e automated exposure control or mA/KV adjustment according to patient size. FINDINGS: Nasopharyngeal tissues are normal in appearance. Fossa Rosenmller are normal. Parapharyngeal fat triangles are symmetric. Tongue base structures are normal. Epiglottis and aryepiglottic folds are normal. Piriform sinuses are well aerated. The vocal cords are normal in appearance. Normal size thyroid gland. The right parotid gland appears enlarged relative to the left. Upper lung bolton are clear. Included intracranial contents are unremarkable. IMPRESSION: Right parotid gland appears enlarged relative to the left, which may indicate parotitis
--- NOTE | 2024-01-04 20:39 | EDPHYS ---
Physician Documentation [facility] Name: Robles Sam Age: 73 yrs Sex: Male : 1950 Arrival Date: 01/04/2024 Time: 18:16 Bed 24 Private MD: ED Physician Zheng Reed HPI: 01/03 18:49 This 73 yrs old Male presents to ER via Ambulatory with complaints of Facial Swelling. 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 Denies fever, shortness of breath, pain. . Historical: - Allergies: 18:47 No Known Allergies; ll1 - Home Meds: 18:51 clopidogrel 75 mg oral tablet [Active]; losartan 50 mg oral tablet [Active]; ll1 - PMHx: 18:47 Hyperlipidemia; Hypertension; ll1 - PSHx: 18:47 kidney removal- right; ll1 - Immunization history:: Adult Immunizations. - Infectious Disease History:: Denies. - Social history:: Smoking status: Patient denies any tobacco usage or history of. ROS: 18:49 Constitutional: As per HPI kb Exam: 20:35 Constitutional: This is a well developed, well nourished patient who is awake, alert, kb and in no acute distress. Head/Face: Normocephalic, atraumatic. ENT: Moist Mucous membranes Cardiovascular: Regular rate Respiratory: Respirations even and unlabored. No increased work of breathing. Talking in full sentences Abdomen/GI: Soft, non-tender. No distention Skin: Warm, dry with normal turgor. Normal color. MS/ Extremity: Pulses equal, no cyanosis. Neurovascular intact. Full, normal range of motion. Neuro: Awake and alert, GCS 15, oriented to person, place, time, and situation. Moves all extremities. Normal gait. 20:35 ENT: Ear canal(s): are normal, TM's: are normal, swelling below ear and down neck with slight erythema. Vital Signs: 18:48 BP 191 / 99; Pulse 64; Resp 16; Temp 97.5; Pulse Ox 100% ; Pain 0/10; ll1 19:40 BP 157 / 86; Pulse 59; Pulse Ox 99% on R/A; kmf 18:48 Pain Scale: Adult ll1 MDM: 18:22 Patient medically screened. kb 20:37 Differential diagnosis: viral Infection, bacterial infection. Data reviewed: vital kb signs, nurses notes. Counseling: I had a detailed discussion with the patient and/or guardian regarding the historical points, exam findings, and any diagnostic results supporting the discharge/admit diagnosis, lab results, radiology results, the need for outpatient follow up, a family practitioner, to return to the emergency department if symptoms worsen or persist or if there are any questions or concerns that arise at home. 01/03 18:52 Order name: CBC with Diff; Complete Time: 19:28 kb 01/03 18:52 Order name: Basic Metabolic Panel; Complete Time: 19:39 kb 01/03 18:52 Order name: CT Soft Tissue Neck W/contr; Complete Time: 20:33 kb 01/03 18:52 Order name: IV Start; Complete Time: 19:18 kb Administered Medications: 20:52 Drug: Doxycycline PO 100 mg PO once Route: PO; vc1 20:53 Follow up: Response: No adverse reaction; Medication administered at discharge. vc1 Disposition Summary: 01/04/24 20:38 Discharge Ordered Notes: Location: Home kb Condition: Stable kb Diagnosis - Parotitis kb Followup: kb - With: Emergency Department - When: As needed - Reason: Worsening of condition Followup: kb - With: Private Physician - When: 2 - 3 days - Reason: Recheck today's complaints, Continuance of care, Re-evaluation by your physician Discharge Instructions: - Discharge Summary Sheet kb - Parotitis, Budd-sp-Dowj kb Forms: - Medication Reconciliation Form kb - Antibiotic Education kb - Prescription Opioid Use kb - Patient Portal Instructions kb - Leadership Thank You Letter kb Prescriptions: - Doxycycline Hyclate 100 mg Oral Tablet - take 1 tablet ORAL route every 12 hours; 20 tablet; Refills: 0, Product kb Selection Permitted Signatures: Dispatcher [employer] Reina Landry FNP-C FNP-Ckb Lewis, Lynsay RN RN ll1 Farideh Flores RN RN vc1
--- NOTE | 2024-01-04 20:39 | ER ---
Nurse's Notes [facility] Name: Robles Sam Age: 73 yrs Sex: Male : 1950 Arrival Date: 01/04/2024 Time: 18:16 Bed 24 Private MD: Diagnosis: Parotitis Presentation: 01/03 18:48 Chief complaint: Patient states: Sudden onset R sided facial swelling started 1 hour ll1 [employer]. No trauma, no pain. Coronavirus screen: Client denies travel out of the [place] in the last 14 days. At this time, the client does not indicate any symptoms associated with coronavirus-19. Ebola Screen: Patient denies travel to an Ebola-affected area in the 21 days before illness onset. Initial Sepsis Screen: Does the patient meet any 2 criteria? No. Patient's initial sepsis screen is negative. Does the patient have a suspected source of infection? No. Patient's initial sepsis screen is negative. Risk Assessment: Do you want to hurt yourself or someone else? Patient reports no desire to harm self or others. Onset of symptoms was January 04, 2024. 18:48 Method Of Arrival: Ambulatory ll1 18:48 Acuity: NANETTE 3 ll1 Triage Assessment: 18:49 General: Appears uncomfortable, Behavior is calm, cooperative, appropriate for age. ll1 Pain: Denies pain. Quality of pain is described as aching. Neuro: Reports R side of face is red and swollen. Historical: - Allergies: 18:47 No Known Allergies; ll1 - Home Meds: 18:51 clopidogrel 75 mg oral tablet [Active]; losartan 50 mg oral tablet [Active]; ll1 - PMHx: 18:47 Hyperlipidemia; Hypertension; ll1 - PSHx: 18:47 kidney removal- right; ll1 - Immunization history:: Adult Immunizations. - Infectious Disease History:: Denies. - Social history:: Smoking status: Patient denies any tobacco usage or history of. Screenin:53 [facility] ED Fall Risk Assessment (Adult) History of falling in the last 3 months, vc1 including since admission No falls in past 3 months (0 pts) Confusion or Disorientation No (0 pts) Intoxicated or Sedated No (0 pts) Impaired Gait No (0 pts) Mobility Assist Device Used No (0 pt) Altered Elimination No (0 pt) Score/Fall Risk Level 0 - 2 = Low Risk Oriented to surroundings, Maintained a safe environment, Educated pt \T\ family on fall prevention, incl call for assistance when getting out of bed. Abuse screen: Denies threats or abuse. Nutritional screening: No deficits noted. Tuberculosis screening: No symptoms or risk factors identified. Assessment: 20:54 General: Appears in no apparent distress. comfortable, well groomed, well developed, vc1 well nourished, Behavior is calm, cooperative, appropriate for age. Pain: Denies pain. Neuro: Level of Consciousness is awake, alert, obeys commands, Oriented to person, place, time, situation, Appropriate for age. Cardiovascular: No deficits noted. Respiratory: Airway is patent Respiratory effort is even, unlabored, Respiratory pattern is regular, symmetrical, Breath sounds are clear bilaterally. GI: No deficits noted. No signs and/or symptoms were reported involving the gastrointestinal system. Abdomen is flat, non-distended. : No deficits noted. No signs and/or symptoms were reported regarding the genitourinary system. EENT: No deficits noted. No signs and/or symptoms were reported regarding the EENT system. Derm: Skin is intact, is healthy with good turgor, Skin is dry, Skin is normal, Skin temperature is warm swelling to right jaw, soft, non painful. Musculoskeletal: No deficits noted. No signs and/or symptoms reported regarding the musculoskeletal system. Vital Signs: 18:48 BP 191 / 99; Pulse 64; Resp 16; Temp 97.5; Pulse Ox 100% ; Pain 0/10; ll1 19:40 BP 157 / 86; Pulse 59; Pulse Ox 99% on R/A; kmf 18:48 Pain Scale: Adult ll1 ED Course: 18:17 Patient arrived in ED. rg4 18:20 [facility] kb 18:20 Zheng Reed MD is Attending Physician. kb 18:49 Triage completed. ll1 18:49 Arm band placed on. ll1 19:10 Patient has correct armband on for positive identification. Bed in low position. vc1 19:10 front desk monitor on. Pulse ox on. NIBP on. vc1 19:18 Farideh Flores, HARPREET is Primary Nurse. vc1 19:18 Basic Metabolic Panel Sent. vc1 19:18 CBC with Diff Sent. vc1 20:15 CT Soft Tissue Neck W/contr In Process Unspecified. EDMS 20:56 Provided Education on: f/u with PCP. vc1 20:56 No provider procedures requiring assistance completed. IV discontinued, intact, vc1 bleeding controlled, No redness/swelling at site. Pressure dressing applied. Administered Medications: 20:52 Drug: Doxycycline PO 100 mg PO once Route: PO; vc1 20:53 Follow up: Response: No adverse reaction; Medication administered at discharge. vc1 Medication: 20:54 VIS not applicable for this client. vc1 Outcome: 20:38 Discharge ordered by . kb 20:56 Discharged to home ambulatory, with significant other, vc1 20:56 Condition: good 20:56 Discharge instructions given to patient, Instructed on discharge instructions, follow up and referral plans. medication usage, Demonstrated understanding of instructions, follow-up care, medications, Prescriptions given X 1, 20:57 Patient left the ED. vc1 Signatures: Dispatcher [employer] EDCA Reina Casillas, JOHN BAUER-Bisi Stacy rg4 Tiffany Mcmullen RN RN ll1 Farideh Flores RN RN vc1 Patricia Hall [facility]
[2024-01-04] MEDS ORDERED: DOXYCYCLINE 100 MG CAP PO ONE (20:42)
[2024-01-04 21:10] VITALS: BP 157/86; TEMP 97.5; O2SAT 99
== END 2024-01-04 20:57 | disposition home or self-care (01) ==
LOC: ER 18:16
DX: K11.20 Sialoadenitis, unspecified (principal)
CPT/HCPCS: 85025; 80048; 36415; 70491; Q9967

== ENCOUNTER 2024-05-17 15:34 | Emergency (ER) | payer OTHER ==
--- NOTE | 2024-05-17 17:13 | RAD REPORT ---
EXAMINATION: XR RIGHT SHOUDLER CLINICAL INDICATION: Male, 73 years old. PAIN RIGHT TECHNIQUE: Multiple views of the right shoulder were obtained. COMPARISON: No prior exam. FINDINGS: Mild AC joint glenohumeral joint arthritic changes are present. No acute fracture or dislo cation seen.
--- NOTE | 2024-05-17 17:13 | RAD REPORT ---
EXAMINATION: XR RIGHT ELBOW CLINICAL INDICATION: Male, 73 years old. PAIN RIGHT TECHNIQUE: Multiple views of the right elbow were obtained. COMPARISON: No prior exam. FINDINGS: Small olecranon spur. No acute fracture or dislocation.
--- NOTE | 2024-05-17 17:17 | RAD REPORT ---
EXAMINATION: XR RIGHT TIBIA AND FIBULA CLINICAL INDICATION: PAIN TECHNIQUE:Two view radiograph of the right tibia and fibula were obtained. COMPARISON: No prior exam. FINDINGS: No bone or joint abnormality detected. Small plantar calcaneal spur.
--- NOTE | 2024-05-17 17:18 | RAD REPORT ---
EXAMINATION: XR RIGHT FEMUR CLINICAL INDICATION: . PAIN RIGHT TECHNIQUE: Multiple views of the right femur were obtained. COMPARISON: No prior exam. FINDINGS: Mild right hip osteoarthritis is present. No fracture, dislocation or AVN is observed.
--- NOTE | 2024-05-17 17:29 | RAD REPORT ---
EXAM: CT CHEST, ABDOMEN AND PELVIS WITHOUT CONTRAST CLINICAL INDICATION: fall, right sided pain, subscapular/pelv;Blunt chest trauma TECHNIQUE: CT chest, abdomen and pelvis was performed without contrast, as per department protocol. A xial, sagittal and coronal reconstructions were obtained. One or more of the following dose reduction techniques were used: Automated exposure control, adjustment of the mA and/or kV according to patient size, and/or iterative reconstruction. Unless otherwise specified, incidental findings do not require dedicated imaging follow-up. Examination is limited by the lack of intravenous contrast material. COMPARISON: 02/17/2019 FINDINGS: LUNGS: No evidence of airspace or interstitial process. No nodules. PLEURA: No pleural effusion. No pneumothorax. MEDIASTINUM AND LYMPH NODES: No mediastinal mass or fluid collection. Normal size mediastinal, hilar, and axillary lymph nodes. OSSEOUS STRUCTURES AND CHEST WALL: Intact. LIVER: Normal in size and contour. No focal lesion or biliary dilatation. Grossly unremarkable gallbl adder. PANCREAS: No mass, ductal dilation, or erna-pancreatic fluid. SPLEEN: Normal size. No focal lesion. ADRENALS: Normal; no mass. KIDNEYS: Nonvisualized right kidney. Kidney appears normal. URINARY BLADDER: Normal contour. GASTROINTESTINAL TRACT: No bowel obstruction, free air, significant free fluid or abscess. Mild sig moid diverticulosis APPENDIX: Normal appendix. LYMPH NODES: No lymphadenopathy. MUSCULOSKELETAL: No acute or suspicious osseous abnormality. OTHER: IMPRESSION: No acute or significant abnormalities seen in the chest, abdomen or pelvis.
--- NOTE | 2024-05-17 17:33 | ER ---
Nurse's Notes [facility] Name: Robles Sam Age: 73 yrs Sex: Male : 1950 Arrival Date: 05/17/2024 Time: 15:34 Bed IW1 Private MD: Diagnosis: Contusion of lower back and pelvis;Contusion of right shoulder;Contusion of right elbow;Contusion of right lower leg Presentation: 05/17 15:53 Chief complaint: Patient states: Fell off a bench approximately 2hrs ago and is having cm10 pain to the right side of his body. Pt states that the pain to his right hip is worse. Didn't hit head, no LOC. Coronavirus screen: Client denies travel out of the [place] in the last 14 days. Ebola Screen: Patient denies travel to an Ebola-affected area in the 21 days before illness onset. No symptoms or risks identified at this time. Initial Sepsis Screen: Does the patient meet any 2 criteria? No. Patient's initial sepsis screen is negative. Does the patient have a suspected source of infection? No. Patient's initial sepsis screen is negative. Risk Assessment: Do you want to hurt yourself or someone else? Patient reports no desire to harm self or others. Onset of symptoms was May 17, 2024. 15:53 Method Of Arrival: Wheelchair cm10 15:53 Acuity: NANETTE 4 cm10 Triage Assessment: 15:55 General: Appears in no apparent distress. comfortable, Behavior is calm, cooperative. cm10 Neuro: No deficits noted. Level of Consciousness is awake, alert, obeys commands, Oriented to person, place, time, situation, Appropriate for age. Respiratory: No deficits noted. Airway is patent Respiratory effort is even, unlabored, Respiratory pattern is regular, symmetrical. Historical: - Allergies: 15:54 No Known Allergies; cm10 - PMHx: 15:54 Hyperlipidemia; Hypertension; cm10 - PSHx: 15:54 kidney removal- right; cm10 - Immunization history:: Adult Immunizations up to date. - Infectious Disease History:: Denies. - Social history:: Smoking status: Patient denies any tobacco usage or history of. - Family history:: not pertinent. - Hospitalizations: : No recent hospitalization is reported. Screenin:40 [facility] ED Fall Risk Assessment (Adult) History of falling in the last 3 months, ll1 including since admission Yes- single mechanical fall (1 pt) Confusion or Disorientation No (0 pts) Intoxicated or Sedated No (0 pts) Impaired Gait No (0 pts) Mobility Assist Device Used No (0 pt) Altered Elimination No (0 pt) Score/Fall Risk Level 0 - 2 = Low Risk Maintained a safe environment, Hourly rounding (assess needs \T\ fall precautionary measures) done. Abuse screen: Denies threats or abuse. Nutritional screening: No deficits noted. Tuberculosis screening: No symptoms or risk factors identified. Assessment: 17:38 General: Appears uncomfortable, Behavior is calm, cooperative, appropriate for age. ll1 Pain: Complains of pain in R hip. Musculoskeletal: Reports pain in R hip. 17:40 Reassessment: No changes from previously documented assessment. Patient and/or family ll1 updated on plan of care and expected duration. Pain level reassessed. Patient is alert, oriented x 3, equal unlabored respirations, skin warm/dry/pink. Vital Signs: 15:53 BP 178 / 96; Pulse 72; Resp 18; Temp 97.2(TE); Pulse Ox 96% on R/A; Weight 113.4 kg cm10 (R); Height 6 ft. 1 in. ; Pain 5/10; 15:53 Body Mass Index 32.98 (113.40 kg, 185.42 cm) cm10 15:53 Pain Scale: Adult cm10 ED Course: 15:39 Patient arrived in ED. mg5 15:54 Triage completed. cm10 15:55 Arm band placed on left wrist. Patient placed in waiting room. cm10 15:59 Jean Claude Dyer MD is Attending Physician. rn 16:34 Radiology exam delayed due to patient not in lobby at this time. rs4 16:52 XRAY Femur RIGHT In Process Unspecified. EDMS 16:52 XRAY Tib Fib RIGHT In Process Unspecified. EDMS 16:53 XRAY Elbow RIGHT 3 view In Process Unspecified. EDMS 16:53 XRAY Shoulder RIGHT 2 view In Process Unspecified. EDMS 17:09 CT Chest Abdomen Pelvis W/O Contrast In Process Unspecified. EDMS 17:40 Patient has correct armband on for positive identification. Provided Education on: ll1 return to ED for worsening symptoms. 17:40 No provider procedures requiring assistance completed. Patient did not have IV access ll1 during this emergency room visit. Administered Medications: No medications were administered Medication: 17:43 VIS not applicable for this client. ll1 Outcome: 17:32 Discharge ordered by . rn 17:40 Patient left the ED. ll1 17:40 Discharged to home via wheelchair, ll1 17:40 Condition: stable 17:40 Discharge instructions given to patient, Instructed on discharge instructions, follow up and referral plans. Demonstrated understanding of instructions, follow-up care, Signatures: Dispatcher [employer] EDMS Jean Claude yDer MD MD rn Lewis, Lynsay, RN RN ll1 Joanna Maria rs4 Annemarie Guerrier RN RN cm10 Sofia Kelley 5
--- NOTE | 2024-05-17 17:33 | EDPHYS ---
Physician Documentation [facility] Name: Robles Sam Age: 73 yrs Sex: Male : 1950 Arrival Date: 05/17/2024 Time: 15:34 Bed IW1 Private MD: ED Physician Jean Claude Dyer HPI: 05/17 17:20 This 73 yrs old Male presents to ER via Wheelchair with complaints of FELL OFF A TABLE. rn 17:20 Details of fall: The patient fell from a height, off furniture. Onset: The rn symptoms/episode began/occurred just prior to arrival. Associated injuries: The patient sustained Right shoulder, right elbow, right hip/pelvis/right tib-fib. Severity of symptoms: At their worst the symptoms were mild, in the emergency department the symptoms are unchanged. The patient has not experienced similar symptoms in the past. Patient states was standing on a table and fell directly on right side. Reports pain to right shoulder/right elbow/right hip/pelvis/right tib-fib. Does not feel like anything is broken but hurts to bear weight on right leg. Does take blood thinners. No head injury or neck pain. No LOC. Remembers all events.. Historical: - Allergies: 15:54 No Known Allergies; cm10 - PMHx: 15:54 Hyperlipidemia; Hypertension; cm10 - PSHx: 15:54 kidney removal- right; cm10 - Immunization history:: Adult Immunizations up to date. - Infectious Disease History:: Denies. - Social history:: Smoking status: Patient denies any tobacco usage or history of. - Family history:: not pertinent. - Hospitalizations: : No recent hospitalization is reported. ROS: 17:20 Constitutional: Negative for fever, chills, and weight loss, Neck: Negative for injury, rn pain, and swelling, Cardiovascular: Negative for chest pain, palpitations, and edema, Respiratory: Negative for shortness of breath, cough, wheezing, and pleuritic chest pain, Abdomen/GI: Negative for abdominal pain, nausea, vomiting, diarrhea, and constipation, Back: Negative for injury and pain, MS/Extremity: Positive for injury and pain to right shoulder/right elbow/right hip/right lower leg Skin: Negative for injury, rash, and discoloration, Neuro: Negative for headache, weakness, numbness, tingling, and seizure, Exam: 17:20 Constitutional: This is a well developed, well nourished patient who is awake, alert, rn and in no acute distress. Head/Face: Normocephalic, atraumatic. Neck: No midline cervical tenderness Chest/axilla: No rib tenderness or crepitus Cardiovascular: Regular rate and rhythm. No pulse deficits. Respiratory: Speaking full sentences, unlabored. Abdomen/GI: Soft, nontender, no ecchymosis Back: No midline spinal tenderness MS/ Extremity: Pulses equal, no cyanosis. Neurovascular intact. mild tenderness right hip and right gluteus. Mild painful range of motion of the right shoulder and right elbow. No gross deformity. Ecchymosis and abrasion with contusion to right tib-fib. No lacerations or open wounds. Neuro: Awake and alert, GCS 15 Vital Signs: 15:53 BP 178 / 96; Pulse 72; Resp 18; Temp 97.2(TE); Pulse Ox 96% on R/A; Weight 113.4 kg cm10 (R); Height 6 ft. 1 in. ; Pain 5/10; 15:53 Body Mass Index 32.98 (113.40 kg, 185.42 cm) cm10 15:53 Pain Scale: Adult cm10 MDM: 15:59 Medical Screening Exam initiated rn 17:31 Differential diagnosis: abrasion, contusion, fracture, multiple trauma, sprain, strain. rn Data reviewed: vital signs, nurses notes, radiologic studies, CT scan, plain films, and as a result, I will discharge patient. Counseling: I had a detailed discussion with the patient and/or guardian regarding the historical points, exam findings, and any diagnostic results supporting the discharge/admit diagnosis, radiology results, the need for outpatient follow up, to return to the emergency department if symptoms worsen or persist or if there are any questions or concerns that arise at home. Special discussion: I discussed with the patient/guardian in detail that at this point there is no indication for admission to the hospital. It is understood, however, that if the symptoms persist or worsen the patient needs to return immediately for re-evaluation. ED course: No acute findings in workup or imaging. CT chest abdomen pelvis negative. X-ray of the elbow/shoulder/femur/tib-fib images negative for acute fracture or dislocations per my interpretation. Will discharge home with ice and rest and given return precautions.. 05/17 16:15 Order name: CT Chest Abdomen Pelvis W/O Contrast; Complete Time: 17:30 rn 05/17 16:15 Order name: XRAY Femur RIGHT; Complete Time: 17:19 rn 05/17 16:15 Order name: XRAY Tib Fib RIGHT; Complete Time: 17:19 rn 05/17 16:18 Order name: XRAY Elbow RIGHT 3 view; Complete Time: 17:19 rn 05/17 16:18 Order name: XRAY Shoulder RIGHT 2 view; Complete Time: 17:19 rn Administered Medications: No medications were administered Disposition Summary: 05/17/24 17:32 Discharge Ordered Notes: Location: Home rn Problem: new rn Symptoms: have improved rn Condition: Stable rn Diagnosis - Contusion of lower back and pelvis rn - Contusion of right shoulder rn - Contusion of right elbow rn - Contusion of right lower leg rn Followup: rn - With: Private Physician - When: As needed - Reason: Recheck today's complaints, Re-evaluation by your physician Discharge Instructions: - Discharge Summary Sheet rn - Contusion rn Forms: - Medication Reconciliation Form rn - Antibiotic men's furnishings salesperson - Prescription Opioid Use rn - Patient Portal Instructions rn - Leadership Thank You Letter rn Signatures: Dispatcher [employer] EDMS Jean Claude Dyer MD MD rn Martinez, Clarissa, RN RN cm10 Corrections: (The following items were deleted from the chart) 16:16 16:16 Femur Right+RAD.RAD.BRZ ordered. EDMS EDMS 16:16 16:16 Tib Fib Right+RAD.RAD.BRZ ordered. EDMS EDMS
[2024-05-17 17:44] VITALS: BP 178/96; TEMP 97.2; O2SAT 96
== END 2024-05-17 17:40 | disposition home or self-care (01) ==
LOC: ER 15:34
DX: S30.0XXA Contusion of lower back and pelvis, initial encounter (principal); S40.011A Contusion of right shoulder, initial encounter; S50.01XA Contusion of right elbow, initial encounter; S80.11XA Contusion of right lower leg, initial encounter; W08.XXXA Fall from other furniture, initial encounter; I10 Essential (primary) hypertension; E78.5 Hyperlipidemia, unspecified
CPT/HCPCS: 71250; 74176; 99282